=== PATIENT | male | born 1960 | race African-American/Black ===

== ENCOUNTER → 2017-03-23 | Outpatient (CLI) | payer OTHER ==
[~2017-03-23] MED LIST: ALUM-35 PO; ASPI81TA28 PO; ASPI81TA57 PO; ATEN50TA PO; FINA5TAB PO; GLIP5TAB11 PO; GLYB5TAB8 PO; HYDR25TA4 PO; INSHRIE SC; LISI5TAB PO; METF-384 PO; PRS5 PO; TAMS0.4C38 PO
[2017-03-23 13:24] LABS: BASO % 0.1 %; BASO ABS # 0.01 K/uL (0-0.2); EOS % 0.3 %; HEMATOCRIT 50.4 % (42-52); IG% 0.2 %; LYMPH % 29.7 %; LYMPH ABS # 2.63 K/uL (1.2-3.4); MEAN PLATELET VOLUME 11.9 fL (7.4-10.4); MONO % 7.7 %; PLATELET COUNT 203 K/uL (130-400); RED BLOOD COUNT 5.09 M/uL (4.7-6.1); WHITE BLOOD COUNT 8.85 K/uL (4.8-10.8)
[2017-03-23 13:28] LABS: COMPLETE YES; MEAN CORPUSCULAR HGB CONC 33.3 g/dl (32-36)
[2017-03-23 15:10] LABS: URINE APPEARANCE CLEAR (CLEAR); URINE BILIRUBIN NEG (NEG); URINE COLOR YELLOW; URINE EPITHELIAL CELL AUTO 0-5 /lpf (0-5); URINE NITRITE NEG (NEG); URINE PH 6.5 (4.5-7.5); URINE SPECIFIC GRAVITY 1.039 (1.000-1.030); UROBILINOGEN NEG (NEG)
[2017-03-23 15:16] LABS: MANUAL MICROSCOPIC REQUIRED? NO; REVIEW REQ? YES
[2017-03-23 19:18] LABS: ALB/GLOB RATIO 1.1 (0.9-2); ALKALINE PHOSPHATASE 102 U/L (45-117); ALT/SGPT 20 U/L (12-78); AST/SGOT 6 U/L (15-37); BLOOD UREA NITROGEN 14 mg/dl (7-18); BUN/CREATININE RATIO 12.8 (10-20); CALCIUM 9.7 mg/dl (8.5-10.1); CARBON DIOXIDE 30 mmol/L (21-32); CHLORIDE 103 mmol/L (98-107); GLUCOSE 414 mg/dl (70-99); POTASSIUM 4.9 mmol/L (3.5-5.1); SODIUM 137 mmol/L (136-145)
[2017-03-23 19:32] LABS: BETA-HYDROXYBUTYRATE 1.51 mg/dL (0.2-2.81)
== END ==
LOC: C.LABSPEC 12:53
PROVIDERS: ATTEND Nurse Practitioner Adult Health
DX: R33.9 Retention of urine, unspecified (principal)

== ENCOUNTER 2017-04-29 10:30 | Inpatient (IN) | payer OTHER ==
[~2017-04-29] VITALS: Ht 185.4 cm; Wt 84.7 kg
[~2017-04-29 10:30] MED LIST changes: -ASPI81TA28 PO; -FINA5TAB PO; -GLYB5TAB8 PO; -HYDR25TA4 PO; -INSHRIE SC; -METF-384 PO
[2017-04-29] MEDS ORDERED: GLYB5TAB8 PO (11:26)
[2017-04-29] MEDS ORDERED: ASPI81TA28 PO (11:26)
[2017-04-29] MEDS ORDERED: INSHRIE SC (11:26)
[2017-04-29] MEDS ORDERED: METF-384 PO (11:26)
[2017-04-29] MEDS ORDERED: FINA5TAB PO (11:26)
[2017-04-29] MEDS ORDERED: HYDR25TA4 PO (11:26)
[2017-04-29] MEDS ORDERED: SODIUM CHLORIDE 0.9% 1000ML 1,000 ML IV STA ×2 (11:54→12:57)
[2017-04-29] MEDS ORDERED: ONDANSETRON INJ 2 MG/ML 2 ML VIAL IV STA (11:54)
[2017-04-29] MEDS ORDERED: MoRPHine SULFATE 4 MG/ML 1 ML CARP\\VIAL IV STA (11:54)
[2017-04-29] MEDS ORDERED: OPTIRAY 320 IV PRN (12:15)
[2017-04-29 12:29] LABS: URINE APPEARANCE CLEAR (CLEAR); URINE BILIRUBIN NEG (NEG); URINE COLOR YELLOW; URINE NITRITE NEG (NEG); URINE SPECIFIC GRAVITY 1.042 (1.000-1.030); UROBILINOGEN NEG (NEG); ZZUR CULT IF INDIC CLEAN CATCH NO
[2017-04-29 12:31] LABS: COMPLETE YES; HEMATOCRIT 51.3 % (42-52); IG% 0.2 %; LYMPH % 8.2 %; LYMPH ABS # 1.32 K/uL (1.2-3.4); MEAN CELL VOLUME 95.5 fL (80-100); MEAN CORPUSCULAR HEMOGLOBIN 34.1 pg (25-34); MEAN CORPUSCULAR HGB CONC 35.7 g/dl (32-36); MEAN PLATELET VOLUME 11.1 fL (7.4-10.4); MONO % 6.1 %; NEUT % 85.5 %; PLATELET COUNT 190 K/uL (130-400); RED BLOOD COUNT 5.37 M/uL (4.7-6.1); WHITE BLOOD COUNT 16.17 K/uL (4.8-10.8)
[2017-04-29 12:49] LABS: BUN/CREATININE RATIO 14.1 (10-20); CALCIUM 9.9 mg/dl (8.5-10.1); CREATININE 1.4 mg/dl (0.60-1.40); POTASSIUM 4.6 mmol/L (3.5-5.1)
[2017-04-29 12:52] LABS: MANUAL MICROSCOPIC REQUIRED? NO; REVIEW REQ? NO
[2017-04-29 12:59] LABS: BETA-HYDROXYBUTYRATE 11.43 mg/dL (0.2-2.81)
[2017-04-29] MEDS ORDERED: NovoLIN-R INSULIN PER UNIT CHARGE SC STA (13:05)
--- NOTE | 2017-04-29 13:07 | EMERGENCY ROOM VISIT NOTE ---
History Report prepared by Augustine: Safia Calles Under the Supervision of: Dr. Mikal Hayes M.D. First contact with patient: 11:31 Chief Complaint: ABDOMINAL PAIN Stated Complaint: ACUTE ABD. PAIN Nursing Triage Summary: 3 days ago had bm with blood in toilet and on paper. pt reports he is diabetic and needed insulin. after that he could not have bm. pt has been vomiting since last night. has been able to urinate. feels dehydrated. denies any hx of hemorrhoids. pt has been here for [facility] told he has infection History of Present Illness The patient is a 56 year old male with a past medical history of HTN and IDDM who presents to the ED with a cc of constant lower abdominal pain for the past 3 days. His last bowel movement was 3 days ago. He states that he had some hematochezia at that time. He has also not passed gas in the past 3 days. The patient rates his pain as an 8/10 in severity. He has never had pain like this before. Positive nausea, vomiting. Negative fevers, chills, cough, urinary symptoms. Pt is incarcerated. Denies recent travel or sick contacts. Source of History: patient Onset: 3 days ago Position: abdomen (lower) Symptom Intensity: 8/10 Timing: constant Associated Symptoms: + nausea, + vomiting, + hematochezia, No fevers, No chills, No cough, No abdominal pain Note: No BM or passing gas for 3 days. Review of Systems See HPI for pertinent positives and negatives. A total of ten systems were reviewed and were otherwise negative. Past Medical & Surgical Medical Problems: (1) BPH (benign prostatic hypertrophy) (2) Diabetes mellitus, type 2 (3) History of prostatitis (4) Hypertension Family History No pertinent history stated. Social History Smoking Status: Current Every Day Smoker Alcohol Use: none Drug Use: none Marital Status: Housing Status: other Occupation Status: other Current/Historical Medications Scheduled Aspirin (Aspirin Ec), 81 MG PO DAILY Atenolol (Tenormin), 50 MG PO DAILY Finasteride (Proscar), 5 MG PO HS Glyburide (Micronase), 2 TAB PO BID Hydrochlorothiazide (Hctz), 25 MG PO DAILY Insulin Human Regular (Humulin R), SC UD Lisinopril (Prinivil), 5 MG PO DAILY Metformin Hcl (Glucophage), 1,000 MG PO BID Allergies Coded Allergies: No Known Allergies (Unverified , 04/29/17) Physical Exam Vital Signs Date Time Temp Pulse Resp B/P (MAP) Pulse Ox O2 Delivery O2 Flow Rate FiO2 04/29/17 16:28 102 122/77 96 Room Air 04/29/17 15:55 98 Room Air 04/29/17 13:56 100 18 142/88 98 Room Air 04/29/17 12:23 112 04/29/17 12:17 116 20 139/94 97 Room Air 04/29/17 10:39 36.8 129 20 127/90 97 Room Air Physical Exam GENERAL: Awake, alert, well-appearing, NAD, not diaphoretic HENT: Normocephalic, atraumatic. EYES: Normal conjunctiva. Sclera non-icteric. NECK: Supple. No nuchal rigidity. FROM. RESPIRATORY: CTAB, no rhonchi, wheezing, crackles CARDIAC: RRR, no MRG ABDOMEN: Soft, no upper abdominal tenderness. Suprapubic, LLQ, and RLQ tenderness, hypoactive BS, negative obturators, negative psoas. MSK: No chest wall TTP, no LE edema NEURO: GCS 15, CN 2-12 intact, moves all 4s on command SKIN: No rash or jaundice noted. Medical Decision & Procedures ER Provider Diagnostic Interpretation: Radiology results as stated below per my review and radiologist interpretation: CT SCAN OF THE ABDOMEN AND PELVIS WITH IV CONTRAST CLINICAL HISTORY: Lower abdominal pain. Obstipation. COMPARISON STUDY: Abdominal CT dated 10/28/2013. TECHNIQUE: Following the IV administration of 119 cc of Optiray 320, CT scan of the abdomen and pelvis is performed from the lung bases to the proximal femora. Images are reviewed in the axial, sagittal, and coronal planes. IV contrast was administered without complication. A dose lowering technique was utilized adhering to the principles of ALARA. CT DOSE: 345.84 mGy.cm FINDINGS: Lung bases: The heart is normal in size and without pericardial effusion. The lung bases are clear noting dependent atelectasis. Liver: The contrast-enhanced liver is normal in size, contour, and attenuation. There is no intrahepatic biliary ductal dilatation. The hepatic veins and portal veins are patent. Gallbladder: Unremarkable. Spleen: Normal in size and attenuation. Pancreas: Unremarkable. Adrenal glands: Unremarkable. Kidneys: The contrast enhanced kidneys are normal in size and without hydronephrosis. The kidneys enhance symmetrically. Abdominal vasculature: The abdominal aorta is normal in course and caliber noting moderate atherosclerotic calcification. There is a moderate stenosis within the right common iliac artery seen on image #331. Bowel: There is a long segment of ileum in the right lower quadrant which is thick-walled and hyperemic with mucosal edema. There is surrounding interloop fluid. The upstream small bowel is distended and fluid-filled measuring up to 3.7 cm in diameter. This gradually transitions to decompressed distal small bowel and colon. No pneumatosis intestinalis or portal venous gas is seen. The appendix is well-visualized and normal. Peritoneum: There is no intraperitoneal free air. There is trace perihepatic and pelvic free fluid. There is a small fat-containing umbilical hernia. Lymphadenopathy: Numerous mildly enlarged mesenteric lymph nodes are likely on a reactive basis. These measure up to 2.0 cm in short axis. There is no retroperitoneal, pelvic sidewall, or inguinal lymphadenopathy. Pelvic viscera: The the prostate gland is enlarged and heterogeneous measuring 5.5 cm in transverse diameter. The bladder is distended and grossly unremarkable. Skeletal structures: There is a large posterior disc osteophyte complex at L5-S1. This likely contributes to acquired compromise of the central canal. Advanced degenerative endplate sclerosis is seen at L5-S1. No lytic or blastic lesions are seen. IMPRESSION: 1. There is a long segment of the distal ileum which is thick-walled, edematous, and hyperemic. The appearance is consistent with a nonspecific ileitis, likely on an infectious/inflammatory basis. 2. The upstream small bowel is distended and fluid-filled. This could represent partial obstruction secondary to ileal edema or possibly a reactive ileus. 3. There is a small volume of free fluid in the abdomen pelvis. No pneumatosis intestinalis, portal venous gas, or intraperitoneal free air is seen. 4. Prostatomegaly. 5. Numerous enlarged mesenteric lymph nodes are likely on a reactive basis. 6. Additional findings as above. Electronically signed by: Isreal Blackmon M.D. 04/29/2017 3:16 PM Dictated Date/Time: 04/29/2017 3:03 PM Laboratory Results Test 04/29/17 12:00 04/29/17 12:10 04/29/17 16:33 Urine Color YELLOW Urine Appearance CLEAR (CLEAR) Urine pH 5.0 (4.5-7.5) Urine Specific Garretson 1.042 (1.000-1.030) Urine Protein NEG (NEG) Urine Glucose (UA) 3+ (NEG) Urine Ketones 3+ (NEG) Urine Occult Blood NEG (NEG) Urine Nitrite NEG (NEG) Urine Bilirubin NEG (NEG) Urine Urobilinogen NEG (NEG) Urine Leukocyte Esterase NEG (NEG) Immature Granulocyte % (Auto) 0.2 % White Blood Count 16.17 K/uL (4.8-10.8) Red Blood Count 5.37 M/uL (4.7-6.1) Hemoglobin 18.3 g/dL (14.0-18.0) Hematocrit 51.3 % (42-52) Mean Corpuscular Volume 95.5 fL (80-100) Mean Corpuscular Hemoglobin 34.1 pg (25-34) Mean Corpuscular Hemoglobin Concent 35.7 g/dl (32-36) Platelet Count 190 K/uL (130-400) Mean Platelet Volume 11.1 fL (7.4-10.4) Neutrophils (%) (Auto) 85.5 % Lymphocytes (%) (Auto) 8.2 % Monocytes (%) (Auto) 6.1 % Eosinophils (%) (Auto) 0.0 % Basophils (%) (Auto) 0.0 % Neutrophils # (Auto) 13.83 K/uL (1.4-6.5) Lymphocytes # (Auto) 1.32 K/uL (1.2-3.4) Monocytes # (Auto) 0.98 K/uL (0.11-0.59) Eosinophils # (Auto) 0.00 K/uL (0-0.5) Basophils # (Auto) 0.00 K/uL (0-0.2) Immature Granulocyte # (Auto) 0.04 K/uL (0.00-0.02) Total Bilirubin 1.1 mg/dl (0.2-1) Direct Bilirubin 0.2 mg/dl (0-0.2) Aspartate Amino Transf (AST/SGOT) 11 U/L (15-37) Alanine Aminotransferase (ALT/SGPT) 19 U/L (12-78) Alkaline Phosphatase 79 U/L (45-117) Total Protein 7.5 gm/dl (6.4-8.2) Albumin 4.0 gm/dl (3.4-5.0) Lipase 185 U/L (73-393) Beta-Hydroxybutyric Acid 11.43 mg/dL (0.2-2.81) Bedside Lactic Acid Venous 1.41 mmol/L (0.90-1.70) Laboratory results reviewed by me Medications Administered Medications (Trade) Dose Ordered Sig/Zion Route Start Time Stop Time Status Last Admin Dose Admin Sodium Chloride 1,000 ml @ 999 mls/hr Q1H1M STAT IV 04/29/17 11:54 04/29/17 12:54 DC 04/29/17 12:23 999 MLS/HR Morphine Sulfate (MoRPHine SULFATE INJ) 4 mg NOW STAT IV 04/29/17 11:54 04/29/17 11:57 DC 04/29/17 12:23 4 MG Ondansetron HCl (Zofran Inj) 4 mg NOW STAT IV 04/29/17 11:54 04/29/17 11:57 DC 04/29/17 12:23 4 MG Sodium Chloride 1,000 ml @ 999 mls/hr Q1H1M STAT IV 04/29/17 12:57 04/29/17 13:57 DC 04/29/17 13:01 999 MLS/HR Insulin Human Regular (novoLIN-R U-100 PER UNIT) 5 units NOW STAT SC 04/29/17 13:05 04/29/17 13:06 DC 04/29/17 13:05 5 UNITS Ciprofloxacin/ Dextrose (Cipro / D5W) 400 mg NOW STAT IV 04/29/17 15:24 04/29/17 15:26 DC 04/29/17 16:26 400 MG Metronidazole (Flagyl / Nss) 500 mg NOW STAT IV 04/29/17 15:24 04/29/17 15:26 DC 04/29/17 16:27 500 MG ECG Indication: abdominal pain Rate (beats per minute): 115 Rhythm: sinus tachycardia Findings: no acute ischemic change, no ectopy ED Course 1131: The patient was evaluated in room B12B. A complete history and physical exam was performed. 1154: Zofran 4 mg IV, Morphine sulfate 4 mg IV, NSS 1000 ml @ 999 mls/hr IV 1257: NSS 1000 ml @ 999 mls/hr IV 1305: Insulin Human Regular 5 units SC 1524: Flagyl 500 mg IV, Cipro 400 mg IV 1527: I reassessed the patient at this time. He is feeling better and resting comfortably. I discussed the results and treatment plan with the patient. I answered all pertaining questions that he had. He expressed understanding and verbalized agreement. 1530: I spoke with Dr. Holden. We discussed the patients case. The patient will be evaluated by the [facility] for further management. 1536: I discussed the case with Dr. Miranda of general surgery. He will come to the ED to evaluate the patient for further management. Medical Decision The patient is a 56 year old male with a past medical history of HTN and IDDM who presents to the ED with a cc of constant lower abdominal pain for the past 3 days. Differential diagnosis: Etiologies such as appendicitis, diverticulitis, PUD, biliary pathology, UTI, pancreatitis, obstruction, mesenteric ischemia, aortic pathology, infections, inflammatory bowel disease, renal colic, as well as others were entertained. Patient was seen and evaluated the bedside. Patient is a history of hypertension and insulin-dependent diabetes who presents with lower abdominal pain, obstipation, and constipation. Patient did have mildly elevated white count. Patient was able tolerate his by mouth contrast. Patient was also noted to have normal LFTs and lipase. Patient's EKG did show sinus tachycardia. Patient UA clean. Patient did have CT of the abdomen pelvis completed which showed possible partial small bowel obstruction versus ileus secondary to edematous small bowel wall. Given patient's infectious symptoms patient was given Cipro Flagyl. She was admitted to the medicine service. Surgery was consulted and they will follow. Medication Reconcilliation Current Medication List: was personally reviewed by me Blood Pressure Screening Patient's blood pressure: Elevated blood pressure Blood pressure disposition: Elevated BP felt to be situational Consults Time Called: 1528 Consulting Physician: Dr. Holden Returned Call: [address] Holden. We discussed the patients case. The patient will be evaluated by the [facility] for further management. Additional Consults: Time Called: 1534 Consulted Physician: Dr. Miranda Returned Call: 1536 Additional Comments: I discussed the case with Dr. Miranda of general surgery. He will come to the ED to evaluate the patient for further management. Impression Primary Impression: Partial small bowel obstruction Scribe Attestation The scribe's documentation has been prepared under my direction and personally reviewed by me in its entirety. I confirm that the note above accurately reflects all work, treatment, procedures, and medical decision making performed by me. Departure Information Dispostion Being Evaluated By Hospitalist Referrals Vasiliy GUAMAN (PCP) Patient Instructions My [facility]
--- NOTE | 2017-04-29 15:17 | DIAGNOSTIC IMAGING REPORT ---
CT SCAN OF THE ABDOMEN AND PELVIS WITH IV CONTRAST CLINICAL HISTORY: Lower abdominal pain. Obstipation. COMPARISON STUDY: Abdominal CT dated 10/28/2013. TECHNIQUE: Following the IV administration of 119 cc of Optiray 320, CT scan of the abdomen and pelvis is performed from the lung bases to the proximal femora. Images are reviewed in the axial, sagittal, and coronal planes. IV contrast was administered without complication. A dose lowering technique was utilized adhering to the principles of ALARA. CT DOSE: 345.84 mGy.cm FINDINGS: Lung bases: The heart is normal in size and without pericardial effusion. The lung bases are clear noting dependent atelectasis. Liver: The contrast-enhanced liver is normal in size, contour, and attenuation. There is no intrahepatic biliary ductal dilatation. The hepatic veins and portal veins are patent. Gallbladder: Unremarkable. Spleen: Normal in size and attenuation. Pancreas: Unremarkable. Adrenal glands: Unremarkable. Kidneys: The contrast enhanced kidneys are normal in size and without hydronephrosis. The kidneys enhance symmetrically. Abdominal vasculature: The abdominal aorta is normal in course and caliber noting moderate atherosclerotic calcification. There is a moderate stenosis within the right common iliac artery seen on image #331. Bowel: There is a long segment of ileum in the right lower quadrant which is thick-walled and hyperemic with mucosal edema. There is surrounding interloop fluid. The upstream small bowel is distended and fluid-filled measuring up to 3.7 cm in diameter. This gradually transitions to decompressed distal small bowel and colon. No pneumatosis intestinalis or portal venous gas is seen. The appendix is well-visualized and normal. Peritoneum: There is no intraperitoneal free air. There is trace perihepatic and pelvic free fluid. There is a small fat-containing umbilical hernia. Lymphadenopathy: Numerous mildly enlarged mesenteric lymph nodes are likely on a reactive basis. These measure up to 2.0 cm in short axis. There is no retroperitoneal, pelvic sidewall, or inguinal lymphadenopathy. Pelvic viscera: The the prostate gland is enlarged and heterogeneous measuring 5.5 cm in transverse diameter. The bladder is distended and grossly unremarkable. Skeletal structures: There is a large posterior disc osteophyte complex at L5-S1. This likely contributes to acquired compromise of the central canal. Advanced degenerative endplate sclerosis is seen at L5-S1. No lytic or blastic lesions are seen. IMPRESSION: 1. There is a long segment of the distal ileum which is thick-walled, edematous, and hyperemic. The appearance is consistent with a nonspecific ileitis, likely on an infectious/inflammatory basis. 2. The upstream small bowel is distended and fluid-filled. This could represent partial obstruction secondary to ileal edema or possibly a reactive ileus. 3. There is a small volume of free fluid in the abdomen pelvis. No pneumatosis intestinalis, portal venous gas, or intraperitoneal free air is seen. 4. Prostatomegaly. 5. Numerous enlarged mesenteric lymph nodes are likely on a reactive basis. 6. Additional findings as above. Electronically signed by: Isreal Blackmon M.D. 04/29/2017 3:16 PM Dictated Date/Time: 04/29/2017 3:03 PM
[2017-04-29] MEDS ORDERED: METRONIDAZOLE 500MG / 100ML NSS IV STA (15:24)
[2017-04-29] MEDS ORDERED: CIPROFLOXACIN 400MG / 200ML D5W IV STA (15:24)
[2017-04-29 15:55] VITALS: O2SAT 98; BMI 24.6
[2017-04-29] MEDS ORDERED: INFLUENZA VIRUS QUAD VACCINE 0.5 ML SYR IM. ONE (16:45)
[2017-04-29] MEDS ORDERED: INFLUENZA ADMINISTRATION CHARGE ONE (16:45)
[2017-04-29] MEDS ORDERED: PNEUMOCOCCAL ADMINISTRATION CHARGE ONE (16:45)
[2017-04-29] MEDS ORDERED: PNEUMOCOCCAL POLYSACCHARIDES 25 MCG/0.5 ML VIAL/SYR IM. ONE (16:45)
[2017-04-29] MEDS ORDERED: ONDANSETRON INJ 2 MG/ML 2 ML VIAL IV PRN (17:15)
[2017-04-29] MEDS ORDERED: INSULIN IV INFUSION PROTOCOL STA (17:17)
--- NOTE | 2017-04-29 17:21 | History and Physical ---
History & Physical Date & Time of Service: Apr 29, 2017 at 16:50 . Chief Complaint: abdominal pain . Primary Care Physician: Vasiliy GUAMAN . History of Present Illness Source: patient, hospital records 56 YO male incarcerated at [facility]. History of hypertension, diabetes type 2, and other problems noted below. Developed abdominal pain 3 days ago. Patient describes lower abdominal pain that is constant, severe, nonradiating. Abdominal pain associated with nausea and vomiting. No bowel movement for a few day. He has noted intermittent rectal bleeding. Also experiencing fever, chills, sweats. Patient reports that he has lost about 30 lbs. Came to ED for evaluation. Symptoms improved after receiving IV morphine and ondansetron. . Past Medical/Surgical History Chronic Medical Problems: (1) BPH (benign prostatic hypertrophy) (2) Diabetes mellitus, type 2 (3) History of prostatitis (4) Hypertension . Family History FATHER Diabetes mellitus Social History Smoking Status: Current Every Day Smoker Alcohol Use: none Drug Use: none Marital Status: Housing status: other ([facility]) Allergies Coded Allergies: No Known Allergies (Unverified , 04/29/17) Home Medications Scheduled Aspirin (Aspirin Ec), 81 MG PO DAILY Atenolol (Tenormin), 50 MG PO DAILY Finasteride (Proscar), 5 MG PO HS Glyburide (Micronase), 2 TAB PO BID Hydrochlorothiazide (Hctz), 25 MG PO DAILY Insulin Human Regular (Humulin R), SC UD Lisinopril (Prinivil), 5 MG PO DAILY Metformin Hcl (Glucophage), 1,000 MG PO BID Review of Systems Constitutional: + problem reported (as noted above in HPI) Eyes: + problem reported (occasional blurred vision) ENT: No nasal symptoms, No sore throat Respiratory: + cough (occasional), + shortness of breath (occasional) Cardiovascular: + palpitations (occasional), No chest pain Abdomen: + problem reported (as per HPI) Genitourinary - Male: No hematuria, No dysuria, No urinary frequency, No urinary urgency Neurologic: + problem reported (mild headache) Endocrine: No excessive thirst, No excessive urination Hematologic / Lymphatic: No abnormal bleeding/bruising Integumentary: No rash, No new/changing skin lesions Physical Exam Vital Signs Date Time Temp Pulse Resp B/P (MAP) Pulse Ox O2 Delivery O2 Flow Rate FiO2 04/29/17 16:28 102 122/77 96 Room Air 04/29/17 15:55 98 Room Air 04/29/17 13:56 100 18 142/88 98 Room Air 04/29/17 12:23 112 04/29/17 12:17 116 20 139/94 97 Room Air 04/29/17 10:39 36.8 129 20 127/90 97 Room Air General Appearance: WD/WN, no apparent distress Head: normocephalic, atraumatic Eyes: normal inspection, PERRL, EOMI, sclerae normal (eyelids and conjunctivae normal) ENT: normal ENT inspection, hearing grossly normal, pharynx normal Neck: supple, no adenopathy, thyroid normal, trachea midline Respiratory/Chest: no respiratory distress, no accessory muscle use, + rhonchi (few scattered rhonchi) Cardiovascular: regular rate, rhythm, no edema, no gallop, no JVD, no murmur Abdomen/GI: + pertinent finding (quiet bowel sounds, slightly distended, soft, moderate lower abdominal tenderness without rebound or guarding, no palpable masses or organomegaly) Extremities/Musculoskelatal: no calf tenderness, no pedal edema Neurologic/Psych: turn operator II-XII nml as tested (PERRL, EOMI, no facial palsy, no dysarthria), no motor/sensory deficits (motor stength grossly intact), alert, normal mood/affect, oriented x 3 Skin: normal color, warm/dry, no rash Lymphatic: no adenopathy (cervical) Diagnostics Laboratory Results Results Past 24 Hours Test 04/29/17 12:00 04/29/17 12:10 04/29/17 16:33 Range/Units Urine Color YELLOW Urine Appearance CLEAR CLEAR Urine pH 5.0 4.5-7.5 Urine Specific [place] 1.042 1.000-1.030 Urine Protein NEG NEG Urine Glucose (UA) 3+ NEG Urine Ketones 3+ NEG Urine Occult Blood NEG NEG Urine Nitrite NEG NEG Urine Bilirubin NEG NEG Urine Urobilinogen NEG NEG Urine Leukocyte Esterase NEG NEG White Blood Count 16.17 4.8-10.8 K/uL Red Blood Count 5.37 4.7-6.1 M/uL Hemoglobin 18.3 14.0-18.0 g/dL Hematocrit 51.3 42-52 % Mean Corpuscular Volume 95.5 80-100 fL Mean Corpuscular Hemoglobin 34.1 25-34 pg Mean Corpuscular Hemoglobin Concent 35.7 32-36 g/dl Platelet Count 190 130-400 K/uL Mean Platelet Volume 11.1 7.4-10.4 fL Neutrophils (%) (Auto) 85.5 % Lymphocytes (%) (Auto) 8.2 % Monocytes (%) (Auto) 6.1 % Eosinophils (%) (Auto) 0.0 % Basophils (%) (Auto) 0.0 % Neutrophils # (Auto) 13.83 1.4-6.5 K/uL Lymphocytes # (Auto) 1.32 1.2-3.4 K/uL Monocytes # (Auto) 0.98 0.11-0.59 K/uL Eosinophils # (Auto) 0.00 0-0.5 K/uL Basophils # (Auto) 0.00 0-0.2 K/uL RDW Standard Deviation 44.2 36.4-46.3 fL RDW Coefficient of Variation 12.8 11.5-14.5 % Immature Granulocyte % (Auto) 0.2 % Immature Granulocyte # (Auto) 0.04 0.00-0.02 K/uL Sodium Level 136 136-145 mmol/L Potassium Level 4.6 3.5-5.1 mmol/L Chloride Level 100 98-107 mmol/L Carbon Dioxide Level 26 21-32 mmol/L Anion Gap 10.0 3-11 mmol/L Blood Urea Nitrogen 20 7-18 mg/dl Creatinine 1.40 0.60-1.40 mg/dl Est Creatinine Clear Calc Drug Dose 65.0 ml/min Estimated GFR () 63.7 Estimated GFR (Non- 55.0 BUN/Creatinine Ratio 14.1 10-20 Random Glucose 346 70-99 mg/dl Calcium Level 9.9 8.5-10.1 mg/dl Total Bilirubin 1.1 0.2-1 mg/dl Direct Bilirubin 0.2 0-0.2 mg/dl Aspartate Amino Transf (AST/SGOT) 11 15-37 U/L Alanine Aminotransferase (ALT/SGPT) 19 12-78 U/L Alkaline Phosphatase 79 45-117 U/L Total Protein 7.5 6.4-8.2 gm/dl Albumin 4.0 3.4-5.0 gm/dl Lipase 185 73-393 U/L Beta-Hydroxybutyric Acid 11.43 0.2-2.81 mg/dL Bedside Lactic Acid Venous 1.41 0.90-1.70 mmol/L Diagnostic Radiology CT SCAN OF THE ABDOMEN AND PELVIS WITH IV CONTRAST FINDINGS: Lung bases: The heart is normal in size and without pericardial effusion. The lung bases are clear noting dependent atelectasis. Liver: The contrast-enhanced liver is normal in size, contour, and attenuation. There is no intrahepatic biliary ductal dilatation. The hepatic veins and portal veins are patent. Gallbladder: Unremarkable. Spleen: Normal in size and attenuation. Pancreas: Unremarkable. Adrenal glands: Unremarkable. Kidneys: The contrast enhanced kidneys are normal in size and without hydronephrosis. The kidneys enhance symmetrically. Abdominal vasculature: The abdominal aorta is normal in course and caliber noting moderate atherosclerotic calcification. There is a moderate stenosis within the right common iliac artery seen on image #[id number]. Bowel: There is a long segment of ileum in the right lower quadrant which is thick-walled and hyperemic with mucosal edema. There is surrounding interloop fluid. The upstream small bowel is distended and fluid-filled measuring up to 3.7 cm in diameter. This gradually transitions to decompressed distal small bowel and colon. No pneumatosis intestinalis or portal venous gas is seen. The appendix is well-visualized and normal. Peritoneum: There is no intraperitoneal free air. There is trace perihepatic and pelvic free fluid. There is a small fat-containing umbilical hernia. Lymphadenopathy: Numerous mildly enlarged mesenteric lymph nodes are likely on a reactive basis. These measure up to 2.0 cm in short axis. There is no retroperitoneal, pelvic sidewall, or inguinal lymphadenopathy. Pelvic viscera: The the prostate gland is enlarged and heterogeneous measuring 5.5 cm in transverse diameter. The bladder is distended and grossly unremarkable. Skeletal structures: There is a large posterior disc osteophyte complex at L5-S1. This likely contributes to acquired compromise of the central canal. Advanced degenerative endplate sclerosis is seen at L5-S1. No lytic or blastic lesions are seen. IMPRESSION: 1. There is a long segment of the distal ileum which is thick-walled, edematous, and hyperemic. The appearance is consistent with a nonspecific ileitis, likely on an infectious/inflammatory basis. 2. The upstream small bowel is distended and fluid-filled. This could represent partial obstruction secondary to ileal edema or possibly a reactive ileus. 3. There is a small volume of free fluid in the abdomen pelvis. No pneumatosis intestinalis, portal venous gas, or intraperitoneal free air is seen. 4. Prostatomegaly. 5. Numerous enlarged mesenteric lymph nodes are likely on a reactive basis. 6. Additional findings as above. Electronically signed by: Isreal Blackmon M.D. 04/29/2017 3:16 PM Dictated Date/Time: 04/29/2017 3:03 PM . EKG EKG performed at 12:[address] at 115 / minute, no acute ST or T-wave abnormalities. . Impression Assessment and Plan ABDOMINAL PAIN CT findings as noted above suggest enteritis and small bowel obstruction. Patient reports intermittent rectal bleeding for some time and weight loss. Consider infectious enteritis, ischemic bowel, inflammatory bowel disease, malignancy. NPO except ice chips, sips, meds. IV antibiotic therapy with ciprofloxacin and metronidazole. General Surgery consulted - ED provider discussed case with them. Consult GI. COUGH Patient reports chronic cough and weight loss. He is a smoker. Check chest x-ray. HYPERTENSION BP in ED 127/90. Hold HCTZ due to GI symptoms. Continue atenolol and lisinopril with sips of water. Follow and titrate Rx. DM TYPE 2 Managed with metformin, glyburide, metformin. Random blood sugar in ED 346. Received 5 units of regular insulin; repeat blood sugar in ED was in 200s. Elevated BHB and ketonuria noted, but anion gap only 10. No need for insulin infusion at this time. Check Hgb A1C. Hold oral agents during hospital stay. Lantus / NovoLog per protocol. BPH Resume finasteride once GI symptoms improve. VTE PROPHYLAXIS Moderate risk for VTE. No anticoagulants because of GI bleeding and possible need for surgical intervention. SCD's. Ambulate as able. DISPOSITION Admit to Med-Surg Unit. Expected return to [facility] under the care of their medical team their. . Advanced Directives Existing Living Will: No Existing Power of Telephone Clerk Telegraph Office: No VTE Prophylaxis VTE Risk Assessment Done? Y/N: Yes Risk Level: Moderate Given or contraindicated: SCD's
[2017-04-29] MEDS ORDERED: MODERATE STRESS LEVEL ONE (17:30)
[2017-04-29] MEDS ORDERED: INSULIN PROTOCOL GOAL RANGE ONE (17:30)
[2017-04-29] MEDS ORDERED: MoRPHine SULFATE 4 MG/ML 1 ML CARP\\VIAL IV PRN (17:45)
[2017-04-29 18:00] VITALS: BP 121/81; PULSE 91; TEMP 37; O2SAT 96
[2017-04-29] MEDS ORDERED: GLUCOSE 40% GEL 15 GM TUBE PO PRN (18:30)
[2017-04-29] MEDS ORDERED: DEXTROSE 50% 50 ML SYR IV PRN (18:30)
[2017-04-29] MEDS ORDERED: GLUCOSE 10 TABS/TUBE PO PRN (18:30)
[2017-04-29] MEDS ORDERED: GLUCAGON FOR INJ 1 MG VIAL SQ PRN (18:30)
[2017-04-29] MEDS: D5W AND LACTATED RINGERS 1,000 ML IV SCH (18:53)
[2017-04-29] MEDS ORDERED: INSULIN ASPART 100 UNITS/ML 3 ML PEN SC SCH (19:00)
[2017-04-29] MEDS: INSULIN ASPART 100 UNITS/ML 3 ML PEN SC SCH (19:36)
[2017-04-29 20:32] VITALS: O2SAT 96
[2017-04-29] MEDS ORDERED: INSULIN GLARGINE SOLOSTAR 100 UNITS/ML 3 ML PEN SC SCH (21:00)
[2017-04-29] MEDS: AMPICILLIN/SULBACTAM SOD INJ 3,000 MG in SODIUM CHLORIDE 0.9% 100ML 100 ML IV SCH (22:12)
--- NOTE | 2017-04-29 22:16 | DIAGNOSTIC IMAGING REPORT ---
SINGLE VIEW CHEST CLINICAL HISTORY: Cough. FINDINGS: An AP, portable, upright chest radiograph is obtained. No prior studies are available for comparison at the time of dictation. The examination is degraded by portable technique and patient rotation. The cardiomediastinal silhouette is unremarkable. There is mild elevation right hemidiaphragm and bibasilar atelectasis. No airspace consolidation is seen typical for pneumonia and there is no large pleural effusion. No pneumothorax is seen. The skeletal structures are osteopenic. The bony thorax is grossly intact. IMPRESSION: No acute cardiopulmonary abnormality. Electronically signed by: Isreal Blackmon M.D. 04/29/2017 10:15 PM Dictated Date/Time: 04/29/2017 10:14 PM
--- NOTE | 2017-04-29 22:53 | SURGICAL CONSULTATION ---
DATE OF ADMISSION: 04/29/2017 REASON FOR CONSULT: Abdominal pain. HISTORY OF PRESENT ILLNESS: The patient is a 56-year-old male who has been complaining of lower abdominal pain over the past 3-4 days with apparently some prior rectal bleeding and also some nausea and vomiting noted in the Emergency Room with a white blood cell count of 16,000 that dehydrated with an H&H of 18 [address] scan showing very mildly dilated small bowel with some mildly thickened ileum consistent with ileitis, nonspecific. The patient has a history of hypertension, diabetes. He is an inmate at [facility]. SOCIAL HISTORY: Not contributory. He is an everyday smoker. MEDICATIONS: He takes medications including Tenormin, Humulin insulin, Prinivil, Glucophage, Proscar. ALLERGIES: No known drug allergies. REVIEW OF SYSTEMS: Please see HPI for positive review of systems Ten other systems were reviewed and were otherwise negative. PHYSICAL EXAMINATION: GENERAL: The patient is awake and alert. He is in no distress. He is responsive. He was joking that he would like some ice cream. HEAD: Atraumatic. EYES: Showed normal. NECK: Supple. LUNGS: There is no respiratory distress. HEART: Regular rate and rhythm. ABDOMEN: Soft. He does not have any peritoneal or percussive tenderness. He has relatively normal sounding bowel sounds at the present time. He has some very nonspecific tenderness to deep palpation in the lower abdomen. SKIN: No rashes. Warm and dry. I did review his CAT scan, he has very mildly dilated small bowel to approximately 3.7 cm. ASSESSMENT AND PLAN: A 56-year-old male with very nonspecific lower abdominal pain. He does not have any acute surgical problem at the present time. He is currently on IV antibiotics which I would continue, bowel rest for now, but possibly advancing his diet tomorrow. Tomorrow, I would also have [facility] GI team see the patient as he will at some point need a colonoscopy. He does not appear to have any significant bowel obstruction.
[2017-04-29 22:57] VITALS: BP 101/62; PULSE 80; TEMP 36.5; O2SAT 97
[2017-04-30] MEDS: D5W AND LACTATED RINGERS 1,000 ML IV SCH ×4 (00:03→19:59)
[2017-04-30] MEDS: INSULIN ASPART 100 UNITS/ML 3 ML PEN SC SCH ×6 (00:13→21:02)
[2017-04-30] MEDS: AMPICILLIN/SULBACTAM SOD INJ 3,000 MG in SODIUM CHLORIDE 0.9% 100ML 100 ML IV SCH ×4 (04:17→21:53)
[2017-04-30] MEDS: INSULIN GLARGINE SOLOSTAR 100 UNITS/ML 3 ML PEN SC SCH ×2 (06:07→18:39)
--- NOTE | 2017-04-30 06:47 | Surgery Progress Note ---
Surgery Progress Note Date of Service Apr 30, 2017. Subjective slept well overnight- no pain meds- hungry vitals stable Objective Vital Signs: Date Time Temp Pulse Resp B/P (MAP) Pulse Ox O2 Delivery O2 Flow Rate FiO2 04/29/17 23:45 Room Air 04/29/17 22:57 36.5 80 16 101/62 (75) 97 Room Air 04/29/17 20:32 96 Room Air 04/29/17 18:00 37.0 91 18 121/81 (94) 96 Room Air 04/29/17 17:50 90 20 134/80 98 04/29/17 16:28 102 122/77 96 Room Air 04/29/17 15:55 98 Room Air 04/29/17 13:56 100 18 142/88 98 Room Air 04/29/17 12:23 112 04/29/17 12:17 116 20 139/94 97 Room Air 04/29/17 10:39 36.8 129 20 127/90 97 Room Air General Appearance: no apparent distress Respiratory/Chest: no respiratory distress Abdomen: soft (some bowel sounds) Laboratory Results: Results Past 24 Hours Test 04/29/17 12:00 04/29/17 12:10 04/29/17 16:33 04/29/17 17:35 Range/Units Urine Color YELLOW Urine Appearance CLEAR CLEAR Urine pH 5.0 4.5-7.5 Urine Specific [place] 1.042 1.000-1.030 Urine Protein NEG NEG Urine Glucose (UA) 3+ NEG Urine Ketones 3+ NEG Urine Occult Blood NEG NEG Urine Nitrite NEG NEG Urine Bilirubin NEG NEG Urine Urobilinogen NEG NEG Urine Leukocyte Esterase NEG NEG White Blood Count 16.17 4.8-10.8 K/uL Red Blood Count 5.37 4.7-6.1 M/uL Hemoglobin 18.3 14.0-18.0 g/dL Hematocrit 51.3 42-52 % Mean Corpuscular Volume 95.5 80-100 fL Mean Corpuscular Hemoglobin 34.1 25-34 pg Mean Corpuscular Hemoglobin Concent 35.7 32-36 g/dl Platelet Count 190 130-400 K/uL Mean Platelet Volume 11.1 7.4-10.4 fL Neutrophils (%) (Auto) 85.5 % Lymphocytes (%) (Auto) 8.2 % Monocytes (%) (Auto) 6.1 % Eosinophils (%) (Auto) 0.0 % Basophils (%) (Auto) 0.0 % Neutrophils # (Auto) 13.83 1.4-6.5 K/uL Lymphocytes # (Auto) 1.32 1.2-3.4 K/uL Monocytes # (Auto) 0.98 0.11-0.59 K/uL Eosinophils # (Auto) 0.00 0-0.5 K/uL Basophils # (Auto) 0.00 0-0.2 K/uL RDW Standard Deviation 44.2 36.4-46.3 fL RDW Coefficient of Variation 12.8 11.5-14.5 % Immature Granulocyte % (Auto) 0.2 % Immature Granulocyte # (Auto) 0.04 0.00-0.02 K/uL Sodium Level 136 136-145 mmol/L Potassium Level 4.6 3.5-5.1 mmol/L Chloride Level 100 98-107 mmol/L Carbon Dioxide Level 26 21-32 mmol/L Anion Gap 10.0 3-11 mmol/L Blood Urea Nitrogen 20 7-18 mg/dl Creatinine 1.40 0.60-1.40 mg/dl Est Creatinine Clear Calc Drug Dose 65.0 ml/min Estimated GFR () 63.7 Estimated GFR (Non- 55.0 BUN/Creatinine Ratio 14.1 10-20 Random Glucose 346 70-99 mg/dl Calcium Level 9.9 8.5-10.1 mg/dl Total Bilirubin 1.1 0.2-1 mg/dl Direct Bilirubin 0.2 0-0.2 mg/dl Aspartate Amino Transf (AST/SGOT) 11 15-37 U/L Alanine Aminotransferase (ALT/SGPT) 19 12-78 U/L Alkaline Phosphatase 79 45-117 U/L Total Protein 7.5 6.4-8.2 gm/dl Albumin 4.0 3.4-5.0 gm/dl Lipase 185 73-393 U/L Beta-Hydroxybutyric Acid 11.43 0.2-2.81 mg/dL Bedside Lactic Acid Venous 1.41 0.90-1.70 mmol/L Bedside Glucose 224 70-99 mg/dl Test 04/29/17 18:27 04/29/17 21:51 04/30/17 00:02 04/30/17 05:58 Range/Units Bedside Glucose 199 237 192 217 70-99 mg/dl Test 04/30/17 06:36 Range/Units Assessment & Plan 04/30 17- no acute changes or significant pain- labs pending will try clear liquids. does not seem to need surgical intervention at this point, cont atbx
[2017-04-30] MEDS ORDERED: NURSING VERBAL MED ORDER ONE ×2 (07:15→20:45)
[2017-04-30 07:35] LABS: BUN/CREATININE RATIO 15.3 (10-20); CALCIUM 8.3 mg/dl (8.5-10.1); CREATININE 0.98 mg/dl (0.60-1.40); POTASSIUM 3.7 mmol/L (3.5-5.1)
[2017-04-30 07:37] LABS: MEAN CORPUSCULAR HEMOGLOBIN 33.5 pg (25-34); MEAN CORPUSCULAR HGB CONC 34.9 g/dl (32-36); MEAN PLATELET VOLUME 10.8 fL (7.4-10.4); PLATELET COUNT 140 K/uL (130-400); RED BLOOD COUNT 4.27 M/uL (4.7-6.1); WHITE BLOOD COUNT 7.02 K/uL (4.8-10.8)
[2017-04-30 07:56] VITALS: BP 121/77; PULSE 78; TEMP 36.7; O2SAT 98
[2017-04-30] MEDS: LISINOPRIL 5 MG TAB PO SCH (09:32)
--- NOTE | 2017-04-30 11:18 | Gastrointestinal Consultation ---
Gastrointestinal Consultation Date of Consultation: Apr 30, 2017 Attending Physician: Dr. Pina Consulting Physician: Dr. Silva Reason for Consultation: abd pain, nausea, vomiting x 2 days History of Present Illness Patient is a 56 year old male with HTN and DM who presented to the ER with complaints of acute onset of lower abd pain, nausea and vomiting. He tells me that he ate Monday and later that evening he got lower abd pain and had to strain to have a BM. Noted some blood in his stool. He has had problems in the past with constipation and intermittent rectal bleeding. Denies any issues with diarrhea. Not on pain medications. Not on a regular bowel regimen. The nausea and vomiting started on and lasted all day and night Monday. No vomiting since yesterday afternoon. His pain is much better. Hungry. Tolerated liquids this AM and asking for a real lunch. There was a 30lb weight loss reported in his admission notes though he tells mt that that is intentional and he did it because of his diabetes. No prior history of GI problems other than the constipation. He has never had a colonoscopy. He had a CT on arrival done with IV contrast. It showed a long segment of ileal inflammation. and mild ?PSBO. He has not had a BM since Monday. No family history of IBD. No personal history of TB. Past Medical/Surgical History Medical Problems: (1) Partial small bowel obstruction Status: Acute Past Medical History: as noted in HPI Past Surgical History: reviewed. Non-contributory Family History Diabetes mellitus FATHER no family history of IBD Social History Smoking Status: Current Every Day Smoker Alcohol Use: none Drug Use: none Marital Status: Housing Status: other Allergies Coded Allergies: No Known Allergies (Unverified , 04/29/17) Current Medications Home Meds and Scripts Medications Dose Route/Sig Max Daily Dose Days Date Category Dose Instructions Humulin R (Insulin Human Regular) 100 Units/Ml Susp SC UD 04/29/17 Reported SS- 201-250=2 251-300=4 301-650=6 351-400=8 401-450=10 451-500=12 Glucophage (Metformin Hcl) 1,000 Mg Tab 1,000 Mg PO BID 04/29/17 Reported Hctz (Hydrochlorothiazide) 25 Mg Tab 25 Mg PO DAILY 04/29/17 Reported Micronase (Glyburide) 5 Mg Tab 2 Tab PO BID 04/29/17 Reported Proscar (Finasteride) 5 Mg Tab 5 Mg PO HS 04/29/17 Reported Aspirin Ec (Aspirin) 81 Mg Tab 81 Mg PO DAILY 04/29/17 Reported Prinivil (Lisinopril) 5 Mg Tab 5 Mg PO DAILY 10/28/13 Reported Tenormin (Atenolol) 50 Mg Tab 50 Mg PO DAILY 10/28/13 Reported Review of Systems 12 systems reviewed and negative except as noted Physical Exam Date Time Temp Pulse Resp B/P (MAP) Pulse Ox O2 Delivery O2 Flow Rate FiO2 04/30/17 08:19 Room Air 04/30/17 07:56 36.7 78 18 121/77 (92) 98 Room Air 04/29/17 23:45 Room Air 04/29/17 22:57 36.5 80 16 101/62 (75) 97 Room Air 04/29/17 20:32 96 Room Air 04/29/17 18:00 37.0 91 18 121/81 (94) 96 Room Air 04/29/17 17:50 90 20 134/80 98 04/29/17 16:28 102 122/77 96 Room Air 04/29/17 15:55 98 Room Air 04/29/17 13:56 100 18 142/88 98 Room Air 04/29/17 12:23 112 04/29/17 12:17 116 20 139/94 97 Room Air General Appearance: WD/WN, no apparent distress Eyes: normal inspection, PERRL ENT: normal ENT inspection, hearing grossly normal, pharynx normal Neck: supple, no adenopathy, no JVD Respiratory/Chest: chest non-tender, lungs clear, normal breath sounds, no accessory muscle use Cardiovascular: regular rate, rhythm, no edema, no murmur Abdomen: normal bowel sounds, non tender, soft Extremities: normal range of motion, non-tender, no pedal edema Neurologic/Psych: microsoft bi architect II-XII nml as tested, no motor/sensory deficits, alert, normal mood/affect, oriented x 3 Skin: normal color, no jaundice, warm/dry, no rash Laboratory Results Last 24 Hours Test 04/29/17 12:00 04/29/17 12:10 04/29/17 16:33 04/29/17 17:35 Urine Color YELLOW Urine Appearance CLEAR Urine pH 5.0 Urine Specific [place] 1.042 Urine Protein NEG Urine Glucose (UA) 3+ Urine Ketones 3+ Urine Occult Blood NEG Urine Nitrite NEG Urine Bilirubin NEG Urine Urobilinogen NEG Urine Leukocyte Esterase NEG White Blood Count 16.17 K/uL Red Blood Count 5.37 M/uL Hemoglobin 18.3 g/dL Hematocrit 51.3 % Mean Corpuscular Volume 95.5 fL Mean Corpuscular Hemoglobin 34.1 pg Mean Corpuscular Hemoglobin Concent 35.7 g/dl Platelet Count 190 K/uL Mean Platelet Volume 11.1 fL Neutrophils (%) (Auto) 85.5 % Lymphocytes (%) (Auto) 8.2 % Monocytes (%) (Auto) 6.1 % Eosinophils (%) (Auto) 0.0 % Basophils (%) (Auto) 0.0 % Neutrophils # (Auto) 13.83 K/uL Lymphocytes # (Auto) 1.32 K/uL Monocytes # (Auto) 0.98 K/uL Eosinophils # (Auto) 0.00 K/uL Basophils # (Auto) 0.00 K/uL RDW Standard Deviation 44.2 fL RDW Coefficient of Variation 12.8 % Immature Granulocyte % (Auto) 0.2 % Immature Granulocyte # (Auto) 0.04 K/uL Sodium Level 136 mmol/L Potassium Level 4.6 mmol/L Chloride Level 100 mmol/L Carbon Dioxide Level 26 mmol/L Anion Gap 10.0 mmol/L Blood Urea Nitrogen 20 mg/dl Creatinine 1.40 mg/dl Est Creatinine Clear Calc Drug Dose 65.0 ml/min Estimated GFR () 63.7 Estimated GFR (Non- 55.0 BUN/Creatinine Ratio 14.1 Random Glucose 346 mg/dl Calcium Level 9.9 mg/dl Total Bilirubin 1.1 mg/dl Direct Bilirubin 0.2 mg/dl Aspartate Amino Transf (AST/SGOT) 11 U/L Alanine Aminotransferase (ALT/SGPT) 19 U/L Alkaline Phosphatase 79 U/L Total Protein 7.5 gm/dl Albumin 4.0 gm/dl Lipase 185 U/L Beta-Hydroxybutyric Acid 11.43 mg/dL Bedside Lactic Acid Venous 1.41 mmol/L Bedside Glucose 224 mg/dl Test 04/29/17 18:27 04/29/17 21:51 04/30/17 00:02 04/30/17 05:58 Bedside Glucose 199 mg/dl 237 mg/dl 192 mg/dl 217 mg/dl Test 04/30/17 06:36 04/30/17 08:15 White Blood Count 7.02 K/uL Red Blood Count 4.27 M/uL Hemoglobin 14.3 g/dL Hematocrit 41.0 % Mean Corpuscular Volume 96.0 fL Mean Corpuscular Hemoglobin 33.5 pg Mean Corpuscular Hemoglobin Concent 34.9 g/dl RDW Standard Deviation 44.5 fL RDW Coefficient of Variation 12.8 % Platelet Count 140 K/uL Mean Platelet Volume 10.8 fL Sodium Level 140 mmol/L Potassium Level 3.7 mmol/L Chloride Level 106 mmol/L Carbon Dioxide Level 29 mmol/L Anion Gap 4.0 mmol/L Blood Urea Nitrogen 15 mg/dl Creatinine 0.98 mg/dl Est Creatinine Clear Calc Drug Dose 92.8 ml/min Estimated GFR () 98.1 Estimated GFR (Non- 84.6 BUN/Creatinine Ratio 15.3 Random Glucose 225 mg/dl Calcium Level 8.3 mg/dl Bedside Glucose 179 mg/dl Impression Patient is a 56 year old male with acute onset of abd pain, nausea and vomiting and imaging showing ileitis. Ddx includes an acute infectious process and less likely IBD or TB. The constipation and rectal bleeding has been a chronic problem. Suspect he has internal hemorrhoids. At some point he should have an outpatient colonoscopy to further evaluate this, however, he needs to recover from this acute illness and be on a regular bowel regimen first. Plan - OK to advance diet. - IVF hydration. - Check stool studies once he has a BM. - Start regular bowel regimen prior to discharge. - Outpatient colonoscopy to be arranged. - Please call with questions.
[2017-04-30] MEDS: POLYETHYLENE (MIRALAX) 17 GM PACK PO SCH (12:15)
[2017-04-30] MEDS: DOCUSATE SODIUM 100 MG CAP PO SCH ×2 (12:15→20:59)
--- NOTE | 2017-04-30 14:05 | DIAGNOSTIC IMAGING REPORT ---
L PELVIS/UNILATERAL HIP 2-3VIEWS CLINICAL HISTORY: hip pain extending to knee on left COMPARISON STUDY: Abdomen and pelvis CT 04/29/2017. FINDINGS: Residual contrast within the colon from the recent abdomen and pelvis CT. This partially obscures the pelvis. No fracture or dislocation within the pelvis or hips. Cartilage spaces are maintained for age. The visualized sacrum appears intact. Soft tissues are unremarkable. Severe degenerative disc disease at L5-S1 with endplate sclerosis. IMPRESSION: No fracture or dislocation within the pelvis or hips. Electronically signed by: Wilder Hudson M.D. 04/30/2017 2:03 PM Dictated Date/Time: 04/30/2017 2:00 PM
[2017-04-30 15:00] VITALS: BP 146/62; PULSE 66; TEMP 36.9; O2SAT 98
--- NOTE | 2017-04-30 17:47 | Progress Note ---
Medicine Progress Note Date & Time of Visit: Apr 30, 2017 at 17:47. Subjective Patient is anxious to advance his diet and to have a BM. No overnight events noted. Tolerating clears. Passing flatus. No additional N/V. Complains of his left leg hurting when he walks and states its been ongoing for the last couple weeks. He also reports having intolerance to metformin and describes GI symptoms of feeling "acid and gas" in his upper GI tract. No diarrhea. Objective Last 8 Hrs Date Time Temp Pulse Resp B/P (MAP) Pulse Ox O2 Delivery O2 Flow Rate FiO2 04/30/17 15:20 Room Air 04/30/17 15:00 36.9 66 20 146/62 (90) 98 Room Air Physical Exam: GENERAL: Patient is in no acute distress. HEENT: No acute trauma, normocephalic atraumatic, mucous membranes moist, no nasal congestion, no scleral icterus. NECK: No stridor, trachea is midline. LUNGS: Clear to auscultation bilaterally, no wheeze, no rhonchi, breath sounds equal. HEART: Without murmurs gallops or rubs, regular rate and rhythm. ABDOMEN: Soft, tender in LQ, bowel sounds positive, no hepatosplenomegaly EXTREMITIES: No cyanosis or edema, full range of motion of all the joints without pain or difficulty, no signs for acute trauma. NEUROLOGIC: Oriented x 3, no acute motor or sensory deficits, no focal weakness. SKIN: No rash, no jaundice, no diaphoresis. Laboratory Results: Last 24 Hours Test 04/29/17 18:27 04/29/17 21:51 04/30/17 00:02 04/30/17 05:58 Bedside Glucose 199 mg/dl 237 mg/dl 192 mg/dl 217 mg/dl Test 04/30/17 06:36 04/30/17 08:15 04/30/17 17:08 White Blood Count 7.02 K/uL Red Blood Count 4.27 M/uL Hemoglobin 14.3 g/dL Hematocrit 41.0 % Mean Corpuscular Volume 96.0 fL Mean Corpuscular Hemoglobin 33.5 pg Mean Corpuscular Hemoglobin Concent 34.9 g/dl RDW Standard Deviation 44.5 fL RDW Coefficient of Variation 12.8 % Platelet Count 140 K/uL Mean Platelet Volume 10.8 fL Sodium Level 140 mmol/L Potassium Level 3.7 mmol/L Chloride Level 106 mmol/L Carbon Dioxide Level 29 mmol/L Anion Gap 4.0 mmol/L Blood Urea Nitrogen 15 mg/dl Creatinine 0.98 mg/dl Est Creatinine Clear Calc Drug Dose 92.8 ml/min Estimated GFR () 98.1 Estimated GFR (Non- 84.6 BUN/Creatinine Ratio 15.3 Random Glucose 225 mg/dl Calcium Level 8.3 mg/dl Bedside Glucose 179 mg/dl 178 mg/dl Date/Time Source Procedure Growth Status 04/30/17 13:40 Stool Shiga Toxin Test Pending Received 04/30/17 13:40 Stool Stool Culture Pending Received Assessment & Plan ABDOMINAL PAIN: -also presented with nausea/vomiting, and intermittent hematochezia -CT Abd/pelvis: suggest enteritis and small bowel obstruction -Surgery and GI consulted, appreciate recommendations -diet advanced to clears today -pt also reports intermittent rectal bleeding and weight loss. -stool for culture ordered -continue empiric IV abx ciprofloxacin and metronidazole. LEFT THIGH PAIN: -only occurs with ambulation -will obtain xray of left hip and left arterial doppler as patient is a tobacco user COUGH: -pt reports ongoing cough and weight loss. -patient is a tobacco smoker. -CXR: negative HYPERTENSION: -HCTZ held due to GI symptoms. -continue atenolol and lisinopril with hold parameters -monitor DM TYPE II: -as outpatient is on metformin, and glyburide; hold during hospitalization -on admission had elevated BSG in 300's, ketonuria, anion gap and bicarb normal -HgbA1c: 10.3 -continue on Lantus + correction scale NovoLog while admitted -would recommend insulin upon discharge BPH: -continue finasteride Current Inpatient Medications: Current Inpatient Medications Medications (Trade) Dose Ordered Sig/Zion Route Start Time Stop Time Status Last Admin Dose Admin Ioversol (Optiray 320) 111 ml UD PRN IV 04/29/17 12:15 05/03/17 12:14 Ondansetron HCl (Zofran Inj) 4 mg Q6H PRN IV 04/29/17 17:15 05/29/17 17:14 Dextrose/Lactated Ringer's 1,000 ml @ 150 mls/hr Q6H40M IV 04/29/17 17:30 05/29/17 17:29 04/30/17 13:21 150 MLS/HR Atenolol (Tenormin Tab) 50 mg DAILY PO 04/30/17 09:00 05/30/17 08:59 04/30/17 09:32 50 MG Lisinopril (Zestril Tab) 5 mg DAILY PO 04/30/17 09:00 05/30/17 08:59 04/30/17 09:32 5 MG Glucose (Glucose 40% Gel) 15-30 GRAMS 15 GRAMS... UD PRN PO 04/29/17 18:30 05/29/17 18:29 Glucose (Glucose Chew Tab) 4-8 Tablets 4 Tabl... UD PRN PO 04/29/17 18:30 05/29/17 18:29 Dextrose (Dextrose 50% 50ML Syringe) 25-50ML OF 50% DW IV FOR... UD PRN IV 04/29/17 18:30 05/29/17 18:29 Glucagon (Glucagon Inj) 1 mg UD PRN SQ 04/29/17 18:30 05/29/17 18:29 Ampicillin Sodium/ Sulbactam Sodium 3000 mg/Sodium Chloride 108 ml @ 200 mls/hr Q6H IV 04/29/17 22:00 05/09/17 21:59 04/30/17 16:18 200 MLS/HR Insulin Glargine (Lantus Solostar Pen) BSG LANTUS SQ < ... Q12@0600,1800 [place] 04/30/17 06:00 05/30/17 05:59 04/30/17 06:07 12 UNITS Insulin Aspart (novoLOG ASPART) SLIDING SCALE G... ACHS [place] 04/30/17 08:00 05/30/17 07:59 04/30/17 13:20 2 UNITS Polyethylene (Miralax Powder Packet) 17 gm DAILY PO 04/30/17 11:15 05/30/17 11:14 04/30/17 12:15 17 GM Docusate Sodium (coLACE CAP) 100 mg BID PO 04/30/17 11:15 05/30/17 11:14 04/30/17 12:15 100 MG
[2017-04-30 23:03] VITALS: BP 148/83; PULSE 67; TEMP 37; O2SAT 99
[2017-05-01] MEDS: D5W AND LACTATED RINGERS 1,000 ML IV SCH ×4 (02:19→22:24)
[2017-05-01] MEDS: AMPICILLIN/SULBACTAM SOD INJ 3,000 MG in SODIUM CHLORIDE 0.9% 100ML 100 ML IV SCH ×4 (03:37→22:23)
[2017-05-01] MEDS: INSULIN GLARGINE SOLOSTAR 100 UNITS/ML 3 ML PEN SC SCH ×2 (05:55→18:47)
[2017-05-01 06:35] LABS: ESTIMATED AVERAGE GLUCOSE 249 mg/dl; HA1C FLAG Normal (Normal)
[2017-05-01 07:13] LABS: HEMATOCRIT 38.4 % (42-52); MEAN CELL VOLUME 96.5 fL (80-100); MEAN CORPUSCULAR HEMOGLOBIN 33.9 pg (25-34); MEAN CORPUSCULAR HGB CONC 35.2 g/dl (32-36); MEAN PLATELET VOLUME 10.8 fL (7.4-10.4); PLATELET COUNT 145 K/uL (130-400); RED BLOOD COUNT 3.98 M/uL (4.7-6.1); WHITE BLOOD COUNT 6.17 K/uL (4.8-10.8)
[2017-05-01 07:22] VITALS: BP 116/64; PULSE 67; TEMP 37.1; O2SAT 99
--- NOTE | 2017-05-01 07:40 | DIAGNOSTIC IMAGING REPORT ---
LEFT LOWER EXTREMITY DOPPLER STUDY CLINICAL HISTORY: Left lower extremity pain with walking. COMPARISON STUDY: None. FINDINGS: Normal velocities and triphasic waveforms seen throughout the left lower tibia arterial system. No arterial occlusion. The left ankle-brachial index was 1.2. IMPRESSION: Normal left lower externally arterial Doppler study. Electronically signed by: Wilder Hudson M.D. 05/01/2017 7:39 AM Dictated Date/Time: 05/01/2017 7:37 AM
[2017-05-01 07:48] LABS: CALCIUM 8.4 mg/dl (8.5-10.1); CREATININE 0.99 mg/dl (0.60-1.40); POTASSIUM 3.8 mmol/L (3.5-5.1)
[2017-05-01] MEDS: DOCUSATE SODIUM 100 MG CAP PO SCH ×2 (08:44→21:00)
[2017-05-01] MEDS: POLYETHYLENE (MIRALAX) 17 GM PACK PO SCH (08:44)
[2017-05-01] MEDS: LISINOPRIL 5 MG TAB PO SCH (08:44)
[2017-05-01] MEDS: INSULIN ASPART 100 UNITS/ML 3 ML PEN SC SCH ×4 (08:50→22:21)
--- NOTE | 2017-05-01 09:40 | Gastroenterology Progress Note ---
Progress Note Date of Service: May 01, 2017 Subjective Pt evaluation today including: conversation w/ patient, physical exam, chart review, lab review, review of studies, review of inpatient medication list Mr. Elizondo is a 56 yr old admitted with constipation and intermittent rectal bleeding. CT on arrival with colitis. Hb 18 on arrival, 13 today. Today, eating a regular consistency diet. One loose brown moderate size BM yesterday w/o blood. Mild abdominal discomfort today. Review of Systems Constitutional: No fever ENT: No hearing loss Respiratory: No cough Cardiac: No chest pain Abdomen: + constipation, + GI bleeding, No pain, No nausea, No vomiting, No diarrhea Male : No dysuria Neuro: No memory loss Psych: No depression symptoms Heme: No abnormal bleeding/bruising Skin: No rash Medications Current Inpatient Medications Medications (Trade) Dose Ordered Sig/Zion Route Start Time Stop Time Status Last Admin Dose Admin Ioversol (Optiray 320) 111 ml UD PRN IV 04/29/17 12:15 05/03/17 12:14 Ondansetron HCl (Zofran Inj) 4 mg Q6H PRN IV 04/29/17 17:15 05/29/17 17:14 Dextrose/Lactated Ringer's 1,000 ml @ 150 mls/hr Q6H40M IV 04/29/17 17:30 05/29/17 17:29 05/01/17 02:19 150 MLS/HR Atenolol (Tenormin Tab) 50 mg DAILY PO 04/30/17 09:00 05/30/17 08:59 05/01/17 08:44 50 MG Lisinopril (Zestril Tab) 5 mg DAILY PO 04/30/17 09:00 05/30/17 08:59 05/01/17 08:44 5 MG Glucose (Glucose 40% Gel) 15-30 GRAMS 15 GRAMS... UD PRN PO 04/29/17 18:30 05/29/17 18:29 Glucose (Glucose Chew Tab) 4-8 Tablets 4 Tabl... UD PRN PO 04/29/17 18:30 05/29/17 18:29 Dextrose (Dextrose 50% 50ML Syringe) 25-50ML OF 50% DW IV FOR... UD PRN IV 04/29/17 18:30 05/29/17 18:29 Glucagon (Glucagon Inj) 1 mg UD PRN SQ 04/29/17 18:30 05/29/17 18:29 Ampicillin Sodium/ Sulbactam Sodium 3000 mg/Sodium Chloride 108 ml @ 200 mls/hr Q6H IV 04/29/17 22:00 05/09/17 21:59 05/01/17 03:37 200 MLS/HR Insulin Glargine (Lantus Solostar Pen) BSG LANTUS SQ < ... Q12@0600,1800 [place] 04/30/17 06:00 05/30/17 05:59 05/01/17 05:55 8 UNITS Insulin Aspart (novoLOG ASPART) SLIDING SCALE G... ACHS [place] 04/30/17 08:00 05/30/17 07:59 05/01/17 08:50 4 UNITS Polyethylene (Miralax Powder Packet) 17 gm DAILY PO 04/30/17 11:15 05/30/17 11:14 05/01/17 08:44 17 GM Docusate Sodium (coLACE CAP) 100 mg BID PO 04/30/17 11:15 05/30/17 11:14 05/01/17 08:44 100 MG Objective Vital Signs Date Time Temp Pulse Resp B/P (MAP) Pulse Ox O2 Delivery O2 Flow Rate FiO2 05/01/17 07:30 Room Air 05/01/17 07:22 37.1 67 19 116/64 (81) 99 Room Air 04/30/17 23:45 Room Air 04/30/17 23:03 37.0 67 16 148/83 (104) 99 Room Air 04/30/17 15:20 Room Air 04/30/17 15:00 36.9 66 20 146/62 (90) 98 Room Air Physical Exam General Appearance: no apparent distress Neck: supple, no adenopathy, no JVD Respiratory/Chest: lungs clear Cardiovascular: regular rate, rhythm, no JVD, no murmur Abdomen: soft, + abnormal bowel sounds (hyperactive), + tenderness (minimal, diffuse) Extremities: no pedal edema Neurologic/Psych: alert, normal mood/affect, oriented x 3 Skin: no jaundice (or icterus), warm/dry, no rash Laboratory Results Last 24 Hours Test 04/30/17 12:08 04/30/17 17:08 04/30/17 20:47 05/01/17 05:49 Bedside Glucose 198 mg/dl 178 mg/dl 211 mg/dl 154 mg/dl Test 05/01/17 06:35 White Blood Count 6.17 K/uL Red Blood Count 3.98 M/uL Hemoglobin 13.5 g/dL Hematocrit 38.4 % Mean Corpuscular Volume 96.5 fL Mean Corpuscular Hemoglobin 33.9 pg Mean Corpuscular Hemoglobin Concent 35.2 g/dl RDW Standard Deviation 44.0 fL RDW Coefficient of Variation 12.4 % Platelet Count 145 K/uL Mean Platelet Volume 10.8 fL Sodium Level 142 mmol/L Potassium Level 3.8 mmol/L Chloride Level 107 mmol/L Carbon Dioxide Level 29 mmol/L Anion Gap 6.0 mmol/L Blood Urea Nitrogen 11 mg/dl Creatinine 0.99 mg/dl Est Creatinine Clear Calc Drug Dose 91.9 ml/min Estimated GFR () 96.9 Estimated GFR (Non- 83.6 BUN/Creatinine Ratio 11.0 Random Glucose 169 mg/dl Calcium Level 8.4 mg/dl Assessment and Plan Mr. Elizondo is a 56 yr old male admitted with intermittent rectal bleeding, constipation. Stool culture negative. His rectal bleeding and abnormal CT most likely represents colitis, infectious vs. less likely ischemic or represents hemorrhoids but w/o explanation for the abnormal CT. Plan: 1. Stool for C-diff. 2. OP colonoscopy in 6 weeks. Our office will contact the shelter to arrange. 3. GI will sign off. Please notify us if rectal bleeding recurs. I have seen, examined, and agree with the plan as outlined by JOYCELYN Benitez. -Likely with self limited enteritis -Stool Studies and then will need colonoscopy -continue to advance diet as tolerated
[2017-05-01 10:49] VITALS: Ht 185.4 cm; Wt 84.7 kg
--- NOTE | 2017-05-01 12:56 | Surgery Progress Note ---
Surgery Progress Note Date of Service May 01, 2017. Subjective tolerating diet bowel movement Objective Vital Signs: Date Time Temp Pulse Resp B/P (MAP) Pulse Ox O2 Delivery O2 Flow Rate FiO2 05/01/17 07:30 Room Air 05/01/17 07:22 37.1 67 19 116/64 (81) 99 Room Air 04/30/17 23:45 Room Air 04/30/17 23:03 37.0 67 16 148/83 (104) 99 Room Air 04/30/17 15:20 Room Air 04/30/17 15:00 36.9 66 20 146/62 (90) 98 Room Air Laboratory Results: Results Past 24 Hours Test 04/30/17 17:08 04/30/17 20:47 05/01/17 05:49 05/01/17 06:35 Range/Units Bedside Glucose 178 211 154 70-99 mg/dl White Blood Count 6.17 4.8-10.8 K/uL Red Blood Count 3.98 4.7-6.1 M/uL Hemoglobin 13.5 14.0-18.0 g/dL Hematocrit 38.4 42-52 % Mean Corpuscular Volume 96.5 80-100 fL Mean Corpuscular Hemoglobin 33.9 25-34 pg Mean Corpuscular Hemoglobin Concent 35.2 32-36 g/dl RDW Standard Deviation 44.0 36.4-46.3 fL RDW Coefficient of Variation 12.4 11.5-14.5 % Platelet Count 145 130-400 K/uL Mean Platelet Volume 10.8 7.4-10.4 fL Sodium Level 142 136-145 mmol/L Potassium Level 3.8 3.5-5.1 mmol/L Chloride Level 107 98-107 mmol/L Carbon Dioxide Level 29 21-32 mmol/L Anion Gap 6.0 3-11 mmol/L Blood Urea Nitrogen 11 7-18 mg/dl Creatinine 0.99 0.60-1.40 mg/dl Est Creatinine Clear Calc Drug Dose 91.9 ml/min Estimated GFR () 96.9 Estimated GFR (Non- 83.6 BUN/Creatinine Ratio 11.0 10-20 Random Glucose 169 70-99 mg/dl Calcium Level 8.4 8.5-10.1 mg/dl Test 05/01/17 08:07 Range/Units Bedside Glucose 158 70-99 mg/dl Microbiology Results 04/30/17 Shiga Toxin Test, Received Pending 04/30/17 Stool Culture, Received Pending Assessment & Plan 05/01/17- no indication for surgical intervention followup with GI 04/30 17- no acute changes or significant pain- labs pending will try clear liquids. does not seem to need surgical intervention at this point, cont atbx 04/30 17- no acute changes or significant pain- labs pending will try clear liquids. does not seem to need surgical intervention at this point, cont atbx
[2017-05-01 15:53] VITALS: BP 155/87; PULSE 64; TEMP 36.7; O2SAT 96
--- NOTE | 2017-05-01 18:53 | Progress Note ---
Medicine Progress Note Date & Time of Visit: May 01, 2017 at 18:53. Objective Last 8 Hrs Date Time Temp Pulse Resp B/P (MAP) Pulse Ox O2 Delivery O2 Flow Rate FiO2 05/01/17 15:53 36.7 64 16 155/87 (109) 96 Room Air Physical Exam: GENERAL: Patient is in no acute distress. HEENT: No acute trauma, normocephalic atraumatic, mucous membranes moist, no nasal congestion, no scleral icterus. NECK: No stridor, trachea is midline. LUNGS: Clear to auscultation bilaterally, no wheeze, no rhonchi, breath sounds equal. HEART: Without murmurs gallops or rubs, regular rate and rhythm. ABDOMEN: Soft, tender in LQ, bowel sounds positive, no hepatosplenomegaly EXTREMITIES: No cyanosis or edema, full range of motion of all the joints without pain or difficulty, no signs for acute trauma. NEUROLOGIC: Oriented x 3, no acute motor or sensory deficits, no focal weakness. SKIN: No rash, no jaundice, no diaphoresis. Laboratory Results: Last 24 Hours Test 04/30/17 20:47 05/01/17 05:49 05/01/17 06:35 05/01/17 08:07 Bedside Glucose 211 mg/dl 154 mg/dl 158 mg/dl White Blood Count 6.17 K/uL Red Blood Count 3.98 M/uL Hemoglobin 13.5 g/dL Hematocrit 38.4 % Mean Corpuscular Volume 96.5 fL Mean Corpuscular Hemoglobin 33.9 pg Mean Corpuscular Hemoglobin Concent 35.2 g/dl RDW Standard Deviation 44.0 fL RDW Coefficient of Variation 12.4 % Platelet Count 145 K/uL Mean Platelet Volume 10.8 fL Sodium Level 142 mmol/L Potassium Level 3.8 mmol/L Chloride Level 107 mmol/L Carbon Dioxide Level 29 mmol/L Anion Gap 6.0 mmol/L Blood Urea Nitrogen 11 mg/dl Creatinine 0.99 mg/dl Est Creatinine Clear Calc Drug Dose 91.9 ml/min Estimated GFR () 96.9 Estimated GFR (Non- 83.6 BUN/Creatinine Ratio 11.0 Random Glucose 169 mg/dl Calcium Level 8.4 mg/dl Date/Time Source Procedure Growth Status 05/01/17 15:42 Stool C.difficile Toxin B Gene (PCR) - Final No C. difficile toxin B gene detected Complete Assessment & Plan ABDOMINAL PAIN: -also presented with nausea/vomiting, and intermittent hematochezia -CT Abd/pelvis: suggest enteritis and small bowel obstruction -Surgery and GI consulted, appreciate recommendations -diet advanced to clears today -pt also reports intermittent rectal bleeding and weight loss. -stool for culture ordered -continue empiric IV abx ciprofloxacin and metronidazole. LEFT THIGH PAIN: -only occurs with ambulation -will obtain xray of left hip and left arterial doppler as patient is a tobacco user COUGH: -pt reports ongoing cough and weight loss. -patient is a tobacco smoker. -CXR: negative HYPERTENSION: -HCTZ held due to GI symptoms. -continue atenolol and lisinopril with hold parameters -monitor DM TYPE II: -as outpatient is on metformin, and glyburide; hold during hospitalization -on admission had elevated BSG in 300's, ketonuria, anion gap and bicarb normal -HgbA1c: 10.3 -continue on Lantus + correction scale NovoLog while admitted -would recommend insulin upon discharge BPH: -continue finasteride Current Inpatient Medications: Current Inpatient Medications Medications (Trade) Dose Ordered Sig/Zion Route Start Time Stop Time Status Last Admin Dose Admin Ioversol (Optiray 320) 111 ml UD PRN IV 04/29/17 12:15 05/03/17 12:14 Ondansetron HCl (Zofran Inj) 4 mg Q6H PRN IV 04/29/17 17:15 05/29/17 17:14 05/01/17 17:10 4 MG Dextrose/Lactated Ringer's 1,000 ml @ 150 mls/hr Q6H40M IV 04/29/17 17:30 05/29/17 17:29 05/01/17 16:07 150 MLS/HR Atenolol (Tenormin Tab) 50 mg DAILY PO 04/30/17 09:00 05/30/17 08:59 05/01/17 08:44 50 MG Lisinopril (Zestril Tab) 5 mg DAILY PO 04/30/17 09:00 05/30/17 08:59 05/01/17 08:44 5 MG Glucose (Glucose 40% Gel) 15-30 GRAMS 15 GRAMS... UD PRN PO 04/29/17 18:30 05/29/17 18:29 Glucose (Glucose Chew Tab) 4-8 Tablets 4 Tabl... UD PRN PO 04/29/17 18:30 05/29/17 18:29 Dextrose (Dextrose 50% 50ML Syringe) 25-50ML OF 50% DW IV FOR... UD PRN IV 04/29/17 18:30 05/29/17 18:29 Glucagon (Glucagon Inj) 1 mg UD PRN SQ 04/29/17 18:30 05/29/17 18:29 Ampicillin Sodium/ Sulbactam Sodium 3000 mg/Sodium Chloride 108 ml @ 200 mls/hr Q6H IV 04/29/17 22:00 05/09/17 21:59 05/01/17 16:06 200 MLS/HR Insulin Glargine (Lantus Solostar Pen) BSG LANTUS SQ < ... Q12@0600,1800 [place] 04/30/17 06:00 05/30/17 05:59 05/01/17 18:47 8 UNITS Insulin Aspart (novoLOG ASPART) SLIDING SCALE G... ACHS [place] 04/30/17 08:00 05/30/17 07:59 05/01/17 18:46 3 UNITS Polyethylene (Miralax Powder Packet) 17 gm DAILY PO 04/30/17 11:15 05/30/17 11:14 05/01/17 08:44 17 GM Docusate Sodium (coLACE CAP) 100 mg BID PO 04/30/17 11:15 05/30/17 11:14 05/01/17 08:44 100 MG
[2017-05-01 22:57] VITALS: BP 153/85; PULSE 54; TEMP 36.9; O2SAT 98
[2017-05-02] MEDS: AMPICILLIN/SULBACTAM SOD INJ 3,000 MG in SODIUM CHLORIDE 0.9% 100ML 100 ML IV SCH ×2 (04:18→09:57)
[2017-05-02] MEDS: D5W AND LACTATED RINGERS 1,000 ML IV SCH (04:54)
[2017-05-02 05:56] LABS: HEMATOCRIT 38.3 % (42-52); MEAN CELL VOLUME 95.8 fL (80-100); MEAN CORPUSCULAR HGB CONC 34.5 g/dl (32-36); MEAN PLATELET VOLUME 10.2 fL (7.4-10.4); PLATELET COUNT 132 K/uL (130-400); WHITE BLOOD COUNT 5.42 K/uL (4.8-10.8)
[2017-05-02] MEDS: INSULIN GLARGINE SOLOSTAR 100 UNITS/ML 3 ML PEN SC SCH (06:24)
[2017-05-02 06:31] LABS: BUN/CREATININE RATIO 10.2 (10-20); CALCIUM 8.6 mg/dl (8.5-10.1); CREATININE 1.02 mg/dl (0.60-1.40); POTASSIUM 3.9 mmol/L (3.5-5.1)
[2017-05-02 07:37] VITALS: BP 132/79; PULSE 53; TEMP 36.7; O2SAT 98
[2017-05-02 08:30] VITALS: BP 135/80; PULSE 70
[2017-05-02] MEDS: DOCUSATE SODIUM 100 MG CAP PO SCH (08:34)
[2017-05-02] MEDS: LISINOPRIL 5 MG TAB PO SCH (08:35)
[2017-05-02] MEDS: POLYETHYLENE (MIRALAX) 17 GM PACK PO SCH (08:36)
[2017-05-02] MEDS: INSULIN ASPART 100 UNITS/ML 3 ML PEN SC SCH ×3 (08:42→18:16)
[2017-05-02] MEDS ORDERED: AMOXICILLIN/CLAVULANATE TAB 875 MG TAB PO ONE (10:42)
--- NOTE | 2017-05-02 10:58 | Progress Note ---
Internal Med Progress Note Date of Service: May 02, 2017. Provider Documentation: SUBJECTIVE: The patient was seen and examined Has had some loose stool Denies any abdominal pain,nausea and or vomiting OBJECTIVE: Vital Signs-as noted below Exam: General-No distress at rest Eyes-normal ENT-normal Neck-supple Lungs-clear to auscultate bilaterally Heart-Regular,no murmur appreciated Abdomen-Soft,benign,no masses,bowel sound present Extremities-No edema Neuro-AAOx3 No focal Neuro deficit Lab data as noted below. ASSESSMENT & PLAN: Non specific colitis/Ileitis Admitted with abdominal pain with nausea/vomiting, and intermittent hematochezia -CT Abd/pelvis: suggest enteritis and small bowel obstruction -Surgery and GI consulted, appreciate recommendations -Initial WCC was elevated ,was on NPO<IVF and IV antibiotic -Clinically a lot better -Has been tolerating regular food -Discontinue IVF and start oral Augmentin -likely back to [facility] this afternoon Diarrhea Stool for C Diff and Culture -negative Likely secondary to side effects of Antibiotic Imodium if worse LEFT THIGH PAIN: -only occurs with ambulation -X ray is negative for any significant pathology and US is negative for any Clot COUGH: -pt reports ongoing cough and weight loss. -patient is a tobacco smoker. -CXR: negative -resolved HYPERTENSION: -HCTZ held due to GI symptoms. -continue atenolol and lisinopril with hold parameters -controlled DM TYPE II: -as outpatient is on metformin, and glyburide; hold during hospitalization -on admission had elevated BSG in 300's, ketonuria, anion gap and bicarb normal -HgbA1c: 10.3 -continue on Lantus + correction scale NovoLog while admitted -would recommend insulin upon discharge for better control of Diabetes BPH: -continue finasteride DISPOSITION Likely back to [facility] this afternoon Vital Signs: Date Time Temp Pulse Resp B/P (MAP) Pulse Ox O2 Delivery O2 Flow Rate FiO2 05/02/17 08:30 70 135/80 (98) 05/02/17 07:40 Room Air 05/02/17 07:37 36.7 53 16 132/79 (96) 98 Room Air 05/01/17 23:15 Room Air 05/01/17 22:57 36.9 54 16 153/85 (107) 98 Room Air 05/01/17 16:10 Room Air 05/01/17 15:53 36.7 64 16 155/87 (109) 96 Room Air Lab Results: Results Past 24 Hours Test 05/01/17 12:12 05/01/17 16:53 05/01/17 21:15 05/02/17 05:45 Range/Units Bedside Glucose 247 172 225 70-99 mg/dl White Blood Count 5.42 4.8-10.8 K/uL Red Blood Count 4.00 4.7-6.1 M/uL Hemoglobin 13.2 14.0-18.0 g/dL Hematocrit 38.3 42-52 % Mean Corpuscular Volume 95.8 80-100 fL Mean Corpuscular Hemoglobin 33.0 25-34 pg Mean Corpuscular Hemoglobin Concent 34.5 32-36 g/dl RDW Standard Deviation 42.9 36.4-46.3 fL RDW Coefficient of Variation 12.2 11.5-14.5 % Platelet Count 132 130-400 K/uL Mean Platelet Volume 10.2 7.4-10.4 fL Sodium Level 140 136-145 mmol/L Potassium Level 3.9 3.5-5.1 mmol/L Chloride Level 106 98-107 mmol/L Carbon Dioxide Level 30 21-32 mmol/L Anion Gap 5.0 3-11 mmol/L Blood Urea Nitrogen 10 7-18 mg/dl Creatinine 1.02 0.60-1.40 mg/dl Est Creatinine Clear Calc Drug Dose 89.2 ml/min Estimated GFR () 93.5 Estimated GFR (Non- 80.6 BUN/Creatinine Ratio 10.2 10-20 Random Glucose 228 70-99 mg/dl Calcium Level 8.6 8.5-10.1 mg/dl Test 05/02/17 06:18 05/02/17 08:08 Range/Units Bedside Glucose 202 195 70-99 mg/dl Microbiology Results 05/01/17 C.difficile Toxin B Gene (PCR) - Final, Complete No C. difficile toxin B gene detected
[2017-05-02] MEDS ORDERED: LOPERAMIDE HCL 2 MG CAP PO PRN (11:00)
[2017-05-02] MEDS: LACTOBACILLUS ACIDOPHILUS (FLORANEX) TAB PO SCH ×2 (12:37→18:12)
[2017-05-02] MEDS ORDERED: INFLUENZA ADMINISTRATION CHARGE ONE (14:45)
[2017-05-02] MEDS ORDERED: INFLUENZA VIRUS QUAD VACCINE 0.5 ML SYR IM. ONE (14:45)
[2017-05-02] MEDS ORDERED: PNEUMOCOCCAL ADMINISTRATION CHARGE ONE (14:45)
[2017-05-02] MEDS ORDERED: PNEUMOCOCCAL POLYSACCHARIDES 25 MCG/0.5 ML VIAL/SYR IM. ONE (14:45)
[2017-05-02 15:09] VITALS: BP 157/88; PULSE 56; TEMP 37; O2SAT 98
[2017-05-02] MEDS ORDERED: AMOX1TAB43 PO (16:11)
[2017-05-02] MEDS ORDERED: LCTX PO (16:11)
--- NOTE | 2017-05-02 16:13 | Discharge Instructions ---
Discharge Instructions Date of Service May 02, 2017. Admission Reason for Admission: Abdominal Pain Discharge Discharge Diagnosis / Problem: Nonspecific Colitis/Ileaitis,Rectal Bleed - likely hemorrhoidal Discharge Goals Goal(s): Prevent Disease Progression Activity Recommendations Activity Limitations: resume your previous activity . Instructions / Follow-Up Instructions / Follow-Up As per the facility.GI will arrange Colonoscopy in 4 to 6 weeks Current Hospital Diet Patient's current hospital diet: Diabetes Type 2 Diet Discharge Diet Recommended Diet: Diabetes Type 2 Diet Pending Studies Studies pending at discharge: no Laboratory Results Hemoglobin A1c Test 04/30/17 06:36 Range/Units Estimated Average Glucose 249 mg/dl Hemoglobin A1c 10.3 H 4.5-5.6 % Medical Emergencies . Who to Call and When: Medical Emergencies: If at any time you feel your situation is an emergency, please call 911 immediately. . Non-Emergent Contact Non-Emergency issues call your: Primary Care Provider . Past History Medical & Surgical History: (1) Partial small bowel obstruction (2) Abdominal pain (3) Hypertension (4) Diabetes mellitus, type 2 (5) Weight loss (6) Gastrointestinal bleeding . "Provider Documentation" section prepared by Atul Mcginnis. . VTE Core Measure Inpt VTE Proph given/why not?: SCD's
[2017-05-02 16:30] VITALS: BP 157/88; PULSE 56; TEMP 37; O2SAT 98
--- NOTE | 2017-05-02 16:36 | Discharge Summary ---
Discharge Summary Date of Service May 02, 2017. Discharge Summary Admission Date: Apr 29, 2017 at 17:16 Discharge Date: May 02, 2017 Discharge Disposition: Home Principal Diagnosis: Nonspecific Colitis/Ileitis,Rectal Bleed -likely hemorrhoidal Secondary Diagnoses/Problems: Please see H&P and Hospital Progress note Consultations: GI and Surgery Medication Reconciliation New Medications: Amoxicillin & Pot Clavulanate (Amoxicillin/Clavulanate P) 1 Tab Tab 875 MG PO BIDM for 7 Days, #14 TAB Lactobacillus Acidophilus (Floranex) 1 Tab Tab 2 TAB PO TIDM for 10 Days, #60 TAB Continued Medications: Aspirin (Aspirin Ec) 81 Mg Tab 81 MG PO DAILY Atenolol (Tenormin) 50 Mg Tab 50 MG PO DAILY, TAB Finasteride (Proscar) 5 Mg Tab 5 MG PO HS, TAB Glyburide (Micronase) 5 Mg Tab 2 TAB PO BID, TAB Hydrochlorothiazide (Hctz) 25 Mg Tab 25 MG PO DAILY, TAB Insulin Human Regular (Humulin R) 100 Units/Ml Susp SC UD SS- 201-250=2 251-300=4 301-650=6 351-400=8 401-450=10 451-500=12 Lisinopril (Prinivil) 5 Mg Tab 5 MG PO DAILY, TAB Metformin Hcl (Glucophage) 1,000 Mg Tab 1000 MG PO BID, TAB Admission Information HPI (per Admitting provider): 56 YO male incarcerated at [facility]. History of hypertension, diabetes type 2, and other problems noted below. Developed abdominal pain 3 days ago. Patient describes lower abdominal pain that is constant, severe, nonradiating. Abdominal pain associated with nausea and vomiting. No bowel movement for a few day. He has noted intermittent rectal bleeding. Also experiencing fever, chills, sweats. Patient reports that he has lost about 30 lbs. Came to ED for evaluation. Symptoms improved after receiving IV morphine and ondansetron. Past Medical/Surgical History Chronic Medical Problems: (1) BPH (benign prostatic hypertrophy) (2) Diabetes mellitus, type 2 (3) History of prostatitis (4) Hypertension . Family History FATHER Diabetes mellitus Social History Smoking Status: Current Every Day Smoker Alcohol Use: none Drug Use: none Marital Status: Housing status: other ([facility]) Allergies Coded Allergies: No Known Allergies (Unverified , 04/29/17) Home Medications Scheduled Aspirin (Aspirin Ec), 81 MG PO DAILY Atenolol (Tenormin), 50 MG PO DAILY Finasteride (Proscar), 5 MG PO HS Glyburide (Micronase), 2 TAB PO BID Hydrochlorothiazide (Hctz), 25 MG PO DAILY Insulin Human Regular (Humulin R), SC UD Lisinopril (Prinivil), 5 MG PO DAILY Metformin Hcl (Glucophage), 1,000 MG PO BID Review of Systems Constitutional: + problem reported (as noted above in HPI) Eyes: + problem reported (occasional blurred vision) ENT: No nasal symptoms, No sore throat Respiratory: + cough (occasional), + shortness of breath (occasional) Cardiovascular: + palpitations (occasional), No chest pain Abdomen: + problem reported (as per HPI) Genitourinary - Male: No hematuria, No dysuria, No urinary frequency, No urinary urgency Neurologic: + problem reported (mild headache) Endocrine: No excessive thirst, No excessive urination Hematologic / Lymphatic: No abnormal bleeding/bruising Integumentary: No rash, No new/changing skin lesions Physical Exam Vital Signs Date Time Temp Pulse Resp B/P (MAP) Pulse Ox O2 Delivery O2 Flow Rate FiO2 04/29/17 16:28 102 122/77 96 Room Air 04/29/17 15:55 98 Room Air 04/29/17 13:56 100 18 142/88 98 Room Air 04/29/17 12:23 112 04/29/17 12:17 116 20 139/94 97 Room Air 04/29/17 10:39 36.8 129 20 127/90 97 Room Air General Appearance: WD/WN, no apparent distress Head: normocephalic, atraumatic Eyes: normal inspection, PERRL, EOMI, sclerae normal (eyelids and conjunctivae normal) ENT: normal ENT inspection, hearing grossly normal, pharynx normal Neck: supple, no adenopathy, thyroid normal, trachea midline Respiratory/Chest: no respiratory distress, no accessory muscle use, + rhonchi (few scattered rhonchi) Cardiovascular: regular rate, rhythm, no edema, no gallop, no JVD, no murmur Abdomen/GI: + pertinent finding (quiet bowel sounds, slightly distended, soft, moderate lower abdominal tenderness without rebound or guarding, no palpable masses or organomegaly) Extremities/Musculoskelatal: no calf tenderness, no pedal edema Neurologic/Psych: bioinformatics assistant II-XII nml as tested (PERRL, EOMI, no facial palsy, no dysarthria), no motor/sensory deficits (motor stength grossly intact), alert, normal mood/affect, oriented x 3 Skin: normal color, warm/dry, no rash Lymphatic: no adenopathy (cervical) Diagnostics Laboratory Results Results Past 24 Hours Test 04/29/17 12:00 04/29/17 12:10 04/29/17 16:33 Range/Units Urine Color YELLOW Urine Appearance CLEAR CLEAR Urine pH 5.0 4.5-7.5 Urine Specific Zanoni 1.042 1.000-1.030 Urine Protein NEG NEG Urine Glucose (UA) 3+ NEG Urine Ketones 3+ NEG Urine Occult Blood NEG NEG Urine Nitrite NEG NEG Urine Bilirubin NEG NEG Urine Urobilinogen NEG NEG Urine Leukocyte Esterase NEG NEG White Blood Count 16.17 4.8-10.8 K/uL Red Blood Count 5.37 4.7-6.1 M/uL Hemoglobin 18.3 14.0-18.0 g/dL Hematocrit 51.3 42-52 % Mean Corpuscular Volume 95.5 80-100 fL Mean Corpuscular Hemoglobin 34.1 25-34 pg Mean Corpuscular Hemoglobin Concent 35.7 32-36 g/dl Platelet Count 190 130-400 K/uL Mean Platelet Volume 11.1 7.4-10.4 fL Neutrophils (%) (Auto) 85.5 % Lymphocytes (%) (Auto) 8.2 % Monocytes (%) (Auto) 6.1 % Eosinophils (%) (Auto) 0.0 % Basophils (%) (Auto) 0.0 % Neutrophils # (Auto) 13.83 1.4-6.5 K/uL Lymphocytes # (Auto) 1.32 1.2-3.4 K/uL Monocytes # (Auto) 0.98 0.11-0.59 K/uL Eosinophils # (Auto) 0.00 0-0.5 K/uL Basophils # (Auto) 0.00 0-0.2 K/uL RDW Standard Deviation 44.2 36.4-46.3 fL RDW Coefficient of Variation 12.8 11.5-14.5 % Immature Granulocyte % (Auto) 0.2 % Immature Granulocyte # (Auto) 0.04 0.00-0.02 K/uL Sodium Level 136 136-145 mmol/L Potassium Level 4.6 3.5-5.1 mmol/L Chloride Level 100 98-107 mmol/L Carbon Dioxide Level 26 21-32 mmol/L Anion Gap 10.0 3-11 mmol/L Blood Urea Nitrogen 20 7-18 mg/dl Creatinine 1.40 0.60-1.40 mg/dl Est Creatinine Clear Calc Drug Dose 65.0 ml/min Estimated GFR () 63.7 Estimated GFR (Non- 55.0 BUN/Creatinine Ratio 14.1 10-20 Random Glucose 346 70-99 mg/dl Calcium Level 9.9 8.5-10.1 mg/dl Total Bilirubin 1.1 0.2-1 mg/dl Direct Bilirubin 0.2 0-0.2 mg/dl Aspartate Amino Transf (AST/SGOT) 11 15-37 U/L Alanine Aminotransferase (ALT/SGPT) 19 12-78 U/L Alkaline Phosphatase 79 45-117 U/L Total Protein 7.5 6.4-8.2 gm/dl Albumin 4.0 3.4-5.0 gm/dl Lipase 185 73-393 U/L Beta-Hydroxybutyric Acid 11.43 0.2-2.81 mg/dL Bedside Lactic Acid Venous 1.41 0.90-1.70 mmol/L Diagnostic Radiology CT SCAN OF THE ABDOMEN AND PELVIS WITH IV CONTRAST FINDINGS: Lung bases: The heart is normal in size and without pericardial effusion. The lung bases are clear noting dependent atelectasis. Liver: The contrast-enhanced liver is normal in size, contour, and attenuation. There is no intrahepatic biliary ductal dilatation. The hepatic veins and portal veins are patent. Gallbladder: Unremarkable. Spleen: Normal in size and attenuation. Pancreas: Unremarkable. Adrenal glands: Unremarkable. Kidneys: The contrast enhanced kidneys are normal in size and without hydronephrosis. The kidneys enhance symmetrically. Abdominal vasculature: The abdominal aorta is normal in course and caliber noting moderate atherosclerotic calcification. There is a moderate stenosis within the right common iliac artery seen on image #331. Bowel: There is a long segment of ileum in the right lower quadrant which is thick-walled and hyperemic with mucosal edema. There is surrounding interloop fluid. The upstream small bowel is distended and fluid-filled measuring up to 3.7 cm in diameter. This gradually transitions to decompressed distal small bowel and colon. No pneumatosis intestinalis or portal venous gas is seen. The appendix is well-visualized and normal. Peritoneum: There is no intraperitoneal free air. There is trace perihepatic and pelvic free fluid. There is a small fat-containing umbilical hernia. Lymphadenopathy: Numerous mildly enlarged mesenteric lymph nodes are likely on a reactive basis. These measure up to 2.0 cm in short axis. There is no retroperitoneal, pelvic sidewall, or inguinal lymphadenopathy. Pelvic viscera: The the prostate gland is enlarged and heterogeneous measuring 5.5 cm in transverse diameter. The bladder is distended and grossly unremarkable. Skeletal structures: There is a large posterior disc osteophyte complex at L5-S1. This likely contributes to acquired compromise of the central canal. Advanced degenerative endplate sclerosis is seen at L5-S1. No lytic or blastic lesions are seen. IMPRESSION: 1. There is a long segment of the distal ileum which is thick-walled, edematous, and hyperemic. The appearance is consistent with a nonspecific ileitis, likely on an infectious/inflammatory basis. 2. The upstream small bowel is distended and fluid-filled. This could represent partial obstruction secondary to ileal edema or possibly a reactive ileus. 3. There is a small volume of free fluid in the abdomen pelvis. No pneumatosis intestinalis, portal venous gas, or intraperitoneal free air is seen. 4. Prostatomegaly. 5. Numerous enlarged mesenteric lymph nodes are likely on a reactive basis. 6. Additional findings as above. Electronically signed by: Isreal Blackmon M.D. 04/29/2017 3:16 PM Dictated Date/Time: 04/29/2017 3:03 PM . EKG EKG performed at 12:[address] at 115 / minute, no acute ST or T-wave abnormalities. . Impression Assessment and Plan ABDOMINAL PAIN CT findings as noted above suggest enteritis and small bowel obstruction. Patient reports intermittent rectal bleeding for some time and weight loss. Consider infectious enteritis, ischemic bowel, inflammatory bowel disease, malignancy. NPO except ice chips, sips, meds. IV antibiotic therapy with ciprofloxacin and metronidazole. General Surgery consulted - ED provider discussed case with them. Consult GI. COUGH Patient reports chronic cough and weight loss. He is a smoker. Check chest x-ray. HYPERTENSION BP in ED 127/90. Hold HCTZ due to GI symptoms. Continue atenolol and lisinopril with sips of water. Follow and titrate Rx. DM TYPE 2 Managed with metformin, glyburide, metformin. Random blood sugar in ED 346. Received 5 units of regular insulin; repeat blood sugar in ED was in 200s. Elevated BHB and ketonuria noted, but anion gap only 10. No need for insulin infusion at this time. Check Hgb A1C. Hold oral agents during hospital stay. Lantus / NovoLog per protocol. BPH Resume finasteride once GI symptoms improve. VTE PROPHYLAXIS Moderate risk for VTE. No anticoagulants because of GI bleeding and possible need for surgical intervention. SCD's. Ambulate as able. DISPOSITION Admit to Med-Surg Unit. Expected return to [facility] under the care of their medical team their. . Advanced Directives Existing Living Will: No Existing Power of Metal Sorter: No VTE Prophylaxis VTE Risk Assessment Done? Y/N: Yes Risk Level: Moderate Given or contraindicated: SCD's <Electronically signed by Zack Holden M.D.> Signed: 04/29/172136 Signed: The status of this report is Signed * If report status is Draft, the document has not been finalized by the responsible provider. MNE: [facility] History and Physical Template <AttendingPhy>Suma Pina D.O.</AttendingPhy><EDPhy>Mikal Hayes M.D.</ EDPhy> <FamilyPhy>DENIZVasiliy</FamilyPhy> <PrimaryPhy>DENIZ kelsey</ PrimaryPhy><UnitNumber>[id number]</UnitNumber><VisitNumber>[id number]</ VisitNumber><PatientName>LAURY SARKAR [id number]</PatientName><DateOfBirth>1960 </DateOfBirth><Age>56</Age><Location>[facility]</Location><ServiceDate>04/29/17</ ServiceDate><CC>Zack Holden M.D. [facility]</CC><MNE>ACUTEMED</MNE> Addendum: 04/29/172145 Addendum: Zack Holden M.D. on 04/29/17 @ 21:45 Addendum Section National shortage of IV metronidazole. Will change antibiotic to IV ampicillin / sulbactam. . Physical Exam (per Admitting): General Appearance: WD/WN, no apparent distress Head: normocephalic, atraumatic Eyes: normal inspection, PERRL, EOMI, sclerae normal (eyelids and conjunctivae normal) ENT: normal ENT inspection, hearing grossly normal, pharynx normal Neck: supple, no adenopathy, thyroid normal, trachea midline Respiratory/Chest: no respiratory distress, no accessory muscle use, + rhonchi (few scattered rhonchi) Cardiovascular: regular rate, rhythm, no edema, no gallop, no JVD, no murmur Abdomen/GI: + pertinent finding (quiet bowel sounds, slightly distended, soft, moderate lower abdominal tenderness without rebound or guarding, no palpable masses or organomegaly) Extremities/Musculoskelatal: no calf tenderness, no pedal edema Neurologic/Psych: bioinformatics assistant II-XII nml as tested (PERRL, EOMI, no facial palsy, no dysarthria), no motor/sensory deficits (motor stength grossly intact), alert , normal mood/affect, oriented x 3 Skin: normal color, warm/dry, no rash Lymphatic: no adenopathy (cervical) Hospital Course Non specific colitis/Ileitis Admitted with abdominal pain with nausea/vomiting, and intermittent hematochezia -CT Abd/pelvis: suggest enteritis and small bowel obstruction -Surgery and GI consulted, appreciate recommendations -Initial WCC was elevated ,was on NPO<IVF and IV antibiotic -Clinically a lot better -Has been tolerating regular food -Discontinue IVF and start oral Augmentin -likely back to [facility] this afternoon Diarrhea Stool for C Diff and Culture -negative Likely secondary to side effects of Antibiotic Imodium if worse LEFT THIGH PAIN: -only occurs with ambulation -X ray is negative for any significant pathology and US is negative for any Clot COUGH: -pt reports ongoing cough and weight loss. -patient is a tobacco smoker. -CXR: negative -resolved HYPERTENSION: -HCTZ held due to GI symptoms. -continue atenolol and lisinopril with hold parameters -controlled DM TYPE II: -as outpatient is on metformin, and glyburide; hold during hospitalization -on admission had elevated BSG in 300's, ketonuria, anion gap and bicarb normal -HgbA1c: 10.3 -continue on Lantus + correction scale NovoLog while admitted -would recommend insulin upon discharge for better control of Diabetes BPH: -continue finasteride DISPOSITION Likely back to [facility] this afternoon Total time spent on discharge = 35 minutes This includes examination of the patient, discharge planning, medication reconciliation, and communication with other providers. Discharge Instructions Date of Service May 02, 2017. Admission Reason for Admission: Abdominal Pain Discharge Discharge Diagnosis / Problem: Nonspecific Colitis/Ileitis,Rectal Bleed - likely hemorrhoidal Discharge Goals Goal(s): Prevent Disease Progression Activity Recommendations Activity Limitations: resume your previous activity . Instructions / Follow-Up Instructions / Follow-Up As per the facility.GI will arrange Colonoscopy in 4 to 6 weeks Current Hospital Diet Patient's current hospital diet: Diabetes Type 2 Diet Discharge Diet Recommended Diet: Diabetes Type 2 Diet Pending Studies Studies pending at discharge: no Laboratory Results Hemoglobin A1c Test 04/30/17 06:36 Range/Units Estimated Average Glucose 249 mg/dl Hemoglobin A1c 10.3 H 4.5-5.6 % Medical Emergencies . Who to Call and When: Medical Emergencies: If at any time you feel your situation is an emergency, please call 911 immediately. . Non-Emergent Contact Non-Emergency issues call your: Primary Care Provider . Past History Medical & Surgical History: (1) Partial small bowel obstruction (2) Abdominal pain (3) Hypertension (4) Diabetes mellitus, type 2 (5) Weight loss (6) Gastrointestinal bleeding . "Provider Documentation" section prepared by Atul Mcginnis. . VTE Core Measure Inpt VTE Proph given/why not?: SCD's <Electronically signed by Atul Mcginnis M.D.> Signed: 05/02/17 1608 Additional Copies To [facility]
[2017-05-02] MEDS ORDERED: AMOXICILLIN/CLAVULANATE TAB 875 MG TAB PO SCH (17:45)
== END 2017-05-02 18:10 | DRG 392 ==
LOC: C.EDB 10:33 → C.MSN 17:16 → ENRESERV 17:24
PROVIDERS: ADMIT Hospitalist; ATTEND Internal Medicine
DX: K52.9 Noninfective gastroenteritis and colitis, unspecified (principal); K62.5 Hemorrhage of anus and rectum; K56.609 Unspecified intestinal obstruction, unspecified as to partial versus complete obstruction; R63.4 Abnormal weight loss; E11.9 Type 2 diabetes mellitus without complications; I10 Essential (primary) hypertension; F17.200 Nicotine dependence, unspecified, uncomplicated; Z79.4 Long term (current) use of insulin; Z79.82 Long term (current) use of aspirin; Z83.3 Family history of diabetes mellitus; R05 Cough

== ENCOUNTER 2024-08-27 19:05 | Inpatient (IN) ==
[2024-08-27 19:38] LABS: Basophils # (auto) 0.01 K/uL (0.00-0.20); Basophils % (auto) 0.2 %; Eosinophils # (auto) 0.03 K/uL (0.00-0.50); Eosinophils % (auto) 0.7 %; Hematocrit (blood only) 44.3 % (42.0-52.0); Hemoglobin 15.1 g/dl (14.0-18.0); Immature Granulocytes # (auto) 0.01 K/uL (0.01-0.20); Immature Granulocytes % (auto) 0.2 %; Lymphocytes # (auto) 1.47 K/uL (1.20-3.40); Lymphocytes % (auto) 35.4 %; Mean Corpuscular Hemoglobin 32.2 pg (25.0-34.0); Mean Corpuscular Hgb Conc 34.1 g/dL (32.0-36.0); Mean Corpuscular Volume 94.5 fL (80.0-100.0); Mean Platelet Volume 10.8 fL (9.4-12.4); Monocytes # (auto) 0.27 K/uL (0.11-0.59); Monocytes % (auto) 6.5 %; Neutrophils # (auto) 2.36 K/uL (1.40-6.50); Platelet Count 167 K/uL (130-400); RDW Coefficient of Variation 12.1 % (11.5-14.5); RDW Standard Deviation 41.4 fL (36.4-46.3); Red Blood Count 4.69 M/uL (4.70-6.10); White Blood Count 4.15 K/ul (4.8-10.8)
--- NOTE | 2024-08-27 19:54 | XRay Report ---
CHEST (PA ONLY): Reason for exam: Chest pain Comparison 04/29/2017 A single frontal view of the chest demonstrates the lung tolliver to be clear and normally expanded. The cardiovascular markings and pulmonary vascular pattern appear normal. The mediastinal structures and sujey are normal. Chronic elevation the right hemidiaphragm is stable. The bones and soft tissues are normal. IMPRESSION: Negative for active cardiopulmonary disease. Electronically signed by Pradip Handy 08-27-2024 7:54 PM
[2024-08-27 20:05] LABS: Partial Thromboplastin Ratio 0.9; Partial Thromboplastin Time 24 Seconds (21-31); Prothrombin Time 10.4 Seconds (9.0-12.0)
[2024-08-27 20:19] LABS: Albumin Level 4.5 gm/dl (3.4-5.0); BUN Creatinine Ratio 12.1 (10-20); Bilirubin,Total 0.6 mg/dl (0.2-1.0); Calcium 9.7 mg/dl (8.6-10.3); Creatinine Clr Calc Pharmacy 63.1 ml/min; Globulin 2.2 gm/dl (2.5-4.0); Potassium 4.7 mmol/L (3.5-5.1); Total Protein 6.7 gm/dl (6.0-8.3); Troponin I High Sensitivity 219.5 pg/ml (0-20)
[2024-08-27 20:29] LABS: Adenovirus PCR Not Detected (NotDetected); Bordetella parapertussis PCR Not Detected (NotDetected); Bordetella pertussis PCR Not Detected (NotDetected); Chlamydia pneumoniae PCR Not Detected (NotDetected); Coronavirus 229E PCR Not Detected (NotDetected); Coronavirus CoV-2 (COVID19)PCR Not Detected (NotDetected); Coronavirus HKU1 PCR Not Detected (NotDetected); Coronavirus NL63 PCR Not Detected (NotDetected); Coronavirus OC43PCR Not Detected (NotDetected); Human Metapneumovirus PCR Not Detected (NotDetected); Influenza A PCR Not Detected (NotDetected); Influenza B PCR Not Detected (NotDetected); Mycoplasma pneumoniae PCR Not Detected (NotDetected); Parainfluenza Virus 1 PCR Not Detected (NotDetected); Parainfluenza Virus 2 PCR Not Detected (NotDetected); Parainfluenza Virus 3 PCR Not Detected (NotDetected); Parainfluenza Virus 4 PCR Not Detected (NotDetected); Respiratory Syncytial VirusPCR Not Detected (NotDetected); Rhinovirus/Enterovirus PCR Not Detected (NotDetected)
--- NOTE | 2024-08-27 22:40 | Emergency Department Note ---
Impression & Plan Chest pain, Elevated troponin ED Provider Note CHIEF COMPLAINT: Chest pain HISTORY OF PRESENT ILLNESS: This 63-year-old male patient presents to the emergency department from [facility] for chest pain for 2 days. He reports he was walking, when the chest pain began. He reports minimal exertion. He reports no previous history of chest pain. He states the pain is a burning pain on the left side of the chest that has caused nausea, and shortness of breath. He reports episodes of tachycardia, and diaphoresis. He states he has a history of hypertension, hyperlipidemia, and DMII. The patient states he currently is free of chest pain, however it did not stop until arrival to the department. He is currently well-appearing, with stable vital signs otherwise. REVIEW OF SYSTEMS: A review of systems was performed with positives and pertinent negatives listed in the history of present illness. All other systems were reviewed and are negative. ALLERGIES: See below MEDICATIONS: See below PMH: See below PHYSICAL EXAM: VITALS: Vitals are noted on the nurse's note and reviewed by myself. Vital signs stable. GENERAL: 63-year-old male, in no acute distress, nondiaphoretic, well-developed well-nourished. SKIN: The skin was without rashes, erythema, edema, or bruising. HEAD: Normocephalic atraumatic. NECK: Supple without nuchal rigidity. No lymphadenopathy. No thyromegaly. Cervical spine is nontender. No JVD. HEART: Regular rate and rhythm without murmurs gallops or rubs. LUNGS: Clear to auscultation bilaterally without wheezes, rales or rhonchi. No retractions or accessory muscle use. ABDOMEN: Positive bowel sounds x 4. Soft, nontender, without masses or organomegaly. Plunkett sign negative. No guarding or rebound tenderness. NEURO: Patient was alert and oriented to person place and time. No focal neurological deficits. MEDICAL DECISION MAKING: The patient is a pleasant 63-year-old male who arrives to the emergency department for evaluation of the above-stated complaint. The patient arrived during a time of high acuity, and high-volume. Initial workup was performed in triage including a saline lock, CBC, CMP, lipase, troponin, chest x-ray, and urinalysis. CBC shows leukopenia 4.15, with a stable hemoglobin and hematocrit, CMP shows elevated glucose of 370, negative lipase. Initial troponin performed initial troponin performed at 1922, 219.5 with repeat at 2110, to 237.7. Chest x-ray per my interpretation shows no acute cardiopulmonary process. EKG shows normal sinus at a rate of 89 bpm, no ST elevation, depression, or ectopy. Previous for comparison from April, shows no significant changes. The patient will be admitted to the [facility] for further evaluation and workup. I spoke with [facility] Esp[facility], who agreed to accept the patient under his care. Please refer to his documentation. DIFFERENTIAL DIAGNOSIS: Cardiac ischemia, aortic dissection, pulmonary embolism, pneumothorax, pneumonia, pericarditis, myocarditis, esophageal rupture, GERD, cholecystitis, pancreatitis, musculoskeletal, as well as other pathologies. Continuous pvc monitor: Order was placed for continuous pvc monitor. Patient was placed on the pvc monitor. Patient was noted to be in normal sinus rhythm at an initial rate of 78 bpm. The chart was completed utilizing [employer] Speech voice recognition software. Grammatical errors, random word insertions, pronoun errors, and incomplete sentences are an occasional consequence of this system due to software limitations, ambient noise, and hardware issues. Any formal questions or concerns about the content, text, or information contained within the body of this dictation should be directly addressed to the physician for clarification. Past Med/Surg History Problem List (Updated 08/27/24 @ 22:51 by JOYCELYN Trinidad) Elevated troponin (Acute) Chest pain (Acute) History of prostatitis (Chronic) BPH (benign prostatic hypertrophy) (Chronic) Diabetes mellitus, type 2 (Chronic) Abdominal pain (Acute) Hypertension (Chronic) Weight loss (Acute) Gastrointestinal bleeding (Acute) Social History Smoking Status: Current some day smoker Tobacco Type: Cigarettes Preferred Language: Romansh Feels Safe at Home: Yes Allergies Allergies Allergy/AdvReac Type Severity Reaction Status Date / Time No Known Allergies Allergy Unverified 04/29/17 11:18 Home Meds Home Medications Medication Instructions Recorded Confirmed ATENOLOL (TENORMIN) 50 mg PO DAILY #0 tabs 10/28/13 LISINOPRIL (PRINIVIL) 5 mg PO DAILY #0 tabs 10/28/13 ASPIRIN (ASPIRIN EC) 81 mg PO DAILY ##0 04/29/17 Finasteride (Proscar) 5 mg PO HS #0 tabs 04/29/17 Glyburide (Micronase) 2 tab PO BID #0 tabs 04/29/17 HYDROCHLOROTHIAZIDE (HCTZ) 25 mg PO DAILY #0 tabs 04/29/17 Insulin Human Regular (Humulin R) SC UD ##0 04/29/17 METFORMIN HCL (GLUCOPHAGE) 1,000 mg PO BID #0 tabs 04/29/17 Previous Rx's Medication Instructions Recorded AMOXICILLIN & POT CLAVULANATE 875 mg PO BIDM 7 days #14 tabs 05/02/17 (AMOXICILLIN/CLAVULANATE P) Lactobacillus Acidophilus 2 tab PO TIDM 10 days #60 tabs 05/02/17 (Floranex) Results & Data (ED) Vital Signs Vital Signs - 24 hr 08/27/24 19:13 08/27/24 21:13 08/27/24 21:28 Temperature 37.0 C Temperature Source Oral Pulse Rate 92 H Pulse Rate [Finger] 78 Pulse Rate [Left Apical] 69 Pulse Rhythm [Finger] Regular Pulse Strength [Finger] Normal Respiratory Rate 18 18 20 Respiratory Effort / Characteristics Non-Labored Spontaneous Non-Labored Spontaneous Non-Labored Spontaneous Respiratory Depth Normal Normal Normal Respiratory Pattern Regular Regular Regular Blood Pressure 186/100 H Blood Pressure [Right Arm] 178/96 H 191/111 H Blood Pressure Mean 128 Blood Pressure Mean [Right Arm] 123 137 Blood Pressure Position Sitting Blood Pressure Position [Right Arm] Sitting Pulse Oximetry 97 98 99 Oxygen Delivery Method Room Air Room Air Room Air Sepsis Recent Fever Within 48 Hours No Sepsis New/Unexplained Change in Mental Status N/A Sepsis Action Taken by Nursing No Action Required 08/27/24 21:38 08/27/24 22:00 08/27/24 22:03 Temperature Temperature Source Pulse Rate 78 72 Pulse Rate [Finger] Pulse Rate [Left Apical] Pulse Rhythm [Finger] Pulse Strength [Finger] Respiratory Rate 16 Respiratory Effort / Characteristics Respiratory Depth Respiratory Pattern Blood Pressure 158/88 H Blood Pressure [Right Arm] Blood Pressure Mean 116 Blood Pressure Mean [Right Arm] Blood Pressure Position Blood Pressure Position [Right Arm] Pulse Oximetry 97 Oxygen Delivery Method Room Air Sepsis Recent Fever Within 48 Hours Sepsis New/Unexplained Change in Mental Status Sepsis Action Taken by Nursing 08/27/24 22:18 08/27/24 22:30 Temperature Temperature Source Pulse Rate 65 70 Pulse Rate [Finger] Pulse Rate [Left Apical] Pulse Rhythm [Finger] Pulse Strength [Finger] Respiratory Rate 12 17 Respiratory Effort / Characteristics Respiratory Depth Respiratory Pattern Blood Pressure 181/103 H Blood Pressure [Right Arm] Blood Pressure Mean 129 Blood Pressure Mean [Right Arm] Blood Pressure Position Blood Pressure Position [Right Arm] Pulse Oximetry 97 99 Oxygen Delivery Method Room Air Room Air Sepsis Recent Fever Within 48 Hours Sepsis New/Unexplained Change in Mental Status Sepsis Action Taken by Intermediate Medications Current Medication List: was personally reviewed by me Laboratory Data Attestation: I reviewed the patient's lab results. 08/27/24 19:22 08/27/24 19:22 Lab Results 08/27/24 08/27/24 Range/Units 19:22 21:10 WBC 4.15 L (4.8-10.8) K/ul RBC 4.69 L (4.70-6.10) M/uL Hgb 15.1 (14.0-18.0) g/dl Hct 44.3 (42.0-52.0) % MCV 94.5 (80.0-100.0) fL MCH 32.2 (25.0-34.0) pg MCHC 34.1 (32.0-36.0) g/dL RDW Std Deviation 41.4 (36.4-46.3) fL RDW Coeff of Anh 12.1 (11.5-14.5) % Plt Count 167 (130-400) K/uL MPV 10.8 (9.4-12.4) fL Immature Gran % (Auto) 0.2 % Neut % (Auto) 57.0 % Lymph % (Auto) 35.4 % [place] % (Auto) 6.5 % Eos % (Auto) 0.7 % Baso % (Auto) 0.2 % Neut # (Auto) 2.36 (1.40-6.50) K/uL Lymph # (Auto) 1.47 (1.20-3.40) K/uL [place] # (Auto) 0.27 (0.11-0.59) K/uL Eos # (Auto) 0.03 (0.00-0.50) K/uL Baso # (Auto) 0.01 (0.00-0.20) K/uL Immature Gran # (Auto) 0.01 (0.01-0.20) K/uL PT 10.4 (9.0-12.0) Seconds INR 1.0 (0.9-1.1) APTT 24 (21-31) Seconds PTT Ratio 0.9 Sodium 136 (136-145) mmol/L Potassium 4.7 (3.5-5.1) mmol/L Chloride 101 (98-107) mmol/L Carbon Dioxide 32 (21-32) mmol/L Anion Gap 3 (3-11) BUN 16 (6-23) mg/dl Creatinine 1.32 (0.6-1.4) mg/dl Est Cr Clr Drug Dosing 63.1 ml/min eGFR 59.86 BUN/Creatinine Ratio 12.1 (10-20) Glucose 370 H* (70-99(Fasting)) mg/dl Calcium 9.7 (8.6-10.3) mg/dl Total Bilirubin 0.6 (0.2-1.0) mg/dl AST 15 (13-39) U/L ALT 17 (7-52) U/L Alkaline Phosphatase 98 (34-104) U/L Troponin I High Sens 219.5 H* 237.7 H* (0-20) pg/ml Total Protein 6.7 (6.0-8.3) gm/dl Albumin 4.5 (3.4-5.0) gm/dl Globulin 2.2 L (2.5-4.0) gm/dl Albumin/Globulin Ratio 2.0 (0.9-2) Adenovirus (PCR) Not Detected (NotDetected) B. pertussis DNA (PCR) Not Detected (NotDetected) B.parapertussis DNA PCR Not Detected (NotDetected) C. pneumoniae DNA (PCR) Not Detected (NotDetected) Coronavirus OC43 (PCR) Not Detected (NotDetected) Coronavirus HKU1 (PCR) Not Detected (NotDetected) Coronavirus 229E (PCR) Not Detected (NotDetected) SARS-CoV-2 (PCR) Not Detected (NotDetected) Coronavirus NL63 (PCR) Not Detected (NotDetected) Human Metapneumovir PCR Not Detected (NotDetected) Influenza Type A (PCR) Not Detected (NotDetected) Influenza Type B (PCR) Not Detected (NotDetected) M. pneumoniae (PCR) Not Detected (NotDetected) Parainfluenza 1 (PCR) Not Detected (NotDetected) Parainfluenza 2 (PCR) Not Detected (NotDetected) Parainfluenza 3 (PCR) Not Detected (NotDetected) Parainfluenza 4 (PCR) Not Detected (NotDetected) RSV (PCR) Not Detected (NotDetected) Entero/Rhino (PCR) Not Detected (NotDetected) Imaging Data Attestation: I personally reviewed and interpreted this imaging study as follows: Radiologist's Impression: Chest X-Ray 08/27/24 19:18 CHEST (PA ONLY): Reason for exam: Chest pain Comparison 04/29/2017 A single frontal view of the chest demonstrates the lung tolliver to be clear and normally expanded. The cardiovascular markings and pulmonary vascular pattern appear normal. The mediastinal structures and sujey are normal. Chronic elevation the right hemidiaphragm is stable. The bones and soft tissues are normal. IMPRESSION: Negative for active cardiopulmonary disease. Electronically signed by Pradip Handy 08-27-2024 7:54 PM Discharge Plan Visit Data Chief Complaint: Chest Pain Stated Complaint: CHEST PAIN ED Provider: Isreal Cisse ED Midlevel Provider: Joyce Casanova Discharge Problem: Chest pain, Elevated troponin Forms Stand Alone Forms: My [facility] Prescriptions Prescriptions: No Action ATENOLOL (TENORMIN) 50 MG tablet 50 mg PO DAILY Qty: 0 LISINOPRIL (PRINIVIL) 5 MG tablet 5 mg PO DAILY Qty: 0 ASPIRIN (ASPIRIN EC) 81 MG tablet 81 mg PO DAILY Qty: 0 Finasteride (Proscar) 5 MG tablet 5 mg PO HS Qty: 0 Glyburide (Micronase) 5 MG tablet 2 tab PO BID Qty: 0 HYDROCHLOROTHIAZIDE (HCTZ) 25 MG tablet 25 mg PO DAILY Qty: 0 Insulin Human Regular (Humulin R) 100 UNITS/ML suspension SC UD Qty: 0 Patient Comments: SS- 201-250=2 251-300=4 301-650=6 351-400=8 401-450=10 451-500=12 METFORMIN HCL (GLUCOPHAGE) 1,000 MG tablet 1,000 mg PO BID Qty: 0 AMOXICILLIN & POT CLAVULANATE (AMOXICILLIN/CLAVULANATE P) 1 TAB tablet 875 mg PO BIDM 7 Days Qty: 14 0RF Lactobacillus Acidophilus (Floranex) 1 TAB tablet 2 tab PO TIDM 10 Days Qty: 60 0RF Referrals Referrals: Vasiliy GUAMAN [Primary Care Provider] -
--- NOTE | 2024-08-28 02:11 | History & Physical Report ---
Date of Service August 28, 2024 Assessment & Plan (1) Chest pain: Plan: 63-year-old male with past medical history significant for hypertension, hyperlipidemia, diabetes, GERD is coming from [facility] with chest pain. Patient says couple days ago had chest pain. Again yesterday whole day had chest pain on left-sided chest burning type pain which was severe in nature, no radiation but associated with some shortness of breath, sweating and dizziness and nausea. Patient states pain started when he was walking. The pain lasted until 6 PM. Currently pain resolved. Patient thinks the pain may come back if he walks again. Denies any fevers. No cough. No runny nose or sore throat. No earache. No headache. Vision is okay. Appetite has been okay. No abdominal pain. Normal bowel and bladder movements. Denies blood in stools or black stools. Currently resting comfortably and hemodynamically stable. Chest pain Possible non-ST elevated MS Initial troponin 219 and repeat is 237 Currently chest pain-free Will start on aspirin and IV heparin Continue home atenolol and statin Will follow serial cardiac enzymes and echo Telemetry N.p.o. Consult cardiology in a.m. for further recommendations Hypertension On atenolol and lisinopril we will monitor Hyperlipidemia On statin Diabetes Hold home medications Placed on Lantus 5 units daily and sliding scale for now glycemic pharmacy consult. Monitor closely Fall HbA1c levels GERD Protonix DVT prophylaxis IV heparin Disposition Telemetry Full code History of Present Illness Chief Complaint: Chest pain Primary Care Provider: DENIZ Urbanakelsey 63-year-old male with past medical history significant for hypertension, hyperlipidemia, diabetes, GERD is coming from [facility] with chest pain. Patient says couple days ago had chest pain. Again yesterday whole day had chest pain on left-sided chest burning type pain which was severe in nature, no radiation but associated with some shortness of breath, sweating and dizziness and nausea. Patient states pain started when he was walking. The pain lasted until 6 PM. Currently pain resolved. Patient thinks the pain may come back if he walks again. Denies any fevers. No cough. No runny nose or sore throat. No earache. No headache. Vision is okay. Appetite has been okay. No abdominal pain. Normal bowel and bladder movements. Denies blood in stools or black stools. Currently resting comfortably and hemodynamically stable. Past medical history. As mentioned above Past surgical history. Right foot surgery per patient Social history. Smokes e-cigarettes. Denies alcohol use or drug use Family history. Father had diabetes. Allergies Allergy/AdvReac Type Severity Reaction Status Date / Time No Known Allergies Allergy Unverified 04/29/17 11:18 Home Medications Medication Instructions Recorded Confirmed Type atenolol 50 mg tablet 50 mg PO DAILY 08/27/24 08/27/24 History atorvastatin 40 mg tablet 40 mg PO DAILY 08/27/24 08/27/24 History cyanocobalamin (vitamin B-12) 500 500 mcg PO DAILY 08/27/24 08/27/24 History mcg tablet insulin NPH isoph U-100 human 100 20 unit subcut DAILY 08/27/24 08/27/24 History unit/mL subcutaneous suspension (Novolin N NPH U-100 Insulin isophane) insulin NPH isoph U-100 human 100 20 unit subcut QPM 08/27/24 08/27/24 History unit/mL subcutaneous suspension (Novolin N NPH U-100 Insulin isophane) lisinopril 40 mg tablet 40 mg PO DAILY 08/27/24 08/27/24 History metformin 1,000 mg tablet 1,000 mg PO BID 08/27/24 08/27/24 History pantoprazole 20 mg tablet,delayed 20 mg PO DAILY 08/27/24 08/27/24 History release Past Med/Surg History Problem List (Updated 08/27/24 @ 22:51 by JOYCELYN Trinidad) Elevated troponin (Acute) Chest pain (Acute) History of prostatitis (Chronic) BPH (benign prostatic hypertrophy) (Chronic) Diabetes mellitus, type 2 (Chronic) Abdominal pain (Acute) Hypertension (Chronic) Weight loss (Acute) Gastrointestinal bleeding (Acute) Social History Smoking Status: Light tobacco smoker Tobacco Type: Cigarettes Do You Dip or Chew Tobacco: No; Hx Alcohol Use: No Hx Substance Use: No Preferred Language: Surinamese [employer] Required: No Current Living Situation: Other Other Information That Helps Us Care for You: No Feels Safe at Home: Yes Safety Concerns: Feels Safe At This Time Review of Systems Review of Systems: All systems reviewed & are unremarkable except as noted in HPI & below Physical Exam Physical Exam: General- Not in acute distress Head- atraumatic Eyes- PERRL. ENT- oropharynx clear Neck- supple, no JVD. Lungs- clear to auscultation no wheezing or crackles Heart- regular rate and rhythm; no murmur, no gallop. Abdomen- normal bowel sounds, soft, nontender, no distension Extremities- no pretibial edema, no erythema seen Neuro- alert, oriented PERRL, no facial palsy; no dysarthria; moves extremities Results & Data Results & Data Vital Signs (Past 12 Hours) Vital Signs Temp Pulse Pulse Pulse Resp BP BP 08/28/24 01:38 67 08/28/24 01:00 64 15 166/89 H 08/28/24 00:30 65 13 168/94 H 08/28/24 00:00 74 14 171/100 H 08/27/24 23:30 88 16 164/94 H 08/27/24 22:57 68 17 08/27/24 22:30 70 17 181/103 H 08/27/24 22:18 65 12 08/27/24 22:03 72 16 08/27/24 22:00 158/88 H 08/27/24 21:38 78 08/27/24 21:28 69 20 191/111 H 08/27/24 21:13 78 18 178/96 H 08/27/24 19:13 37.0 C 92 H 18 186/100 H Pulse Ox O2 Del Method 08/28/24 01:38 08/28/24 01:00 98 08/28/24 00:30 100 08/28/24 00:00 98 08/27/24 23:30 99 08/27/24 22:57 97 Room Air 08/27/24 22:30 99 Room Air 08/27/24 22:18 97 Room Air 08/27/24 22:03 97 Room Air 08/27/24 22:00 08/27/24 21:38 08/27/24 21:28 99 Room Air 08/27/24 21:13 98 Room Air 08/27/24 19:13 97 Room Air Diagnostic Findings Laboratory Results WBC 4.15 K/ul (4.8-10.8) L 08/27/24 19:22 RBC 4.69 M/uL (4.70-6.10) L 08/27/24 19:22 Hgb 15.1 g/dl (14.0-18.0) 08/27/24 19: Hct 44.3 % (42.0-52.0) 08/27/24: MCV 94.5 fL (80.0-100.0) 08/27/24 19: MCH 32.2 pg (25.0-34.0) 08/27/24: MCHC 34.1 g/dL (32.0-36.0) 08/27/24: RDW Std Deviation 41.4 fL (36.4-46.3) 08/27/24: RDW Coeff of Anh 12.1 % (11.5-14.5) 08/27/24: Plt Count 167 K/uL (130-400) 08/27/24: MPV 10.8 fL (9.4-12.4) 08/27/24: Immature Gran % (Auto) 0.2 % 08/27/24: Neut % (Auto) 57.0 % 08/27/24: Lymph % (Auto) 35.4 % 08/27/24: [place] % (Auto) 6.5 % 08/27/24: Eos % (Auto) 0.7 % 08/27/24: Baso % (Auto) 0.2 % 08/27/24: Neut # (Auto) 2.36 K/uL (1.40-6.50) 08/27/24: Lymph # (Auto) 1.47 K/uL (1.20-3.40) 08/27/24: [place] # (Auto) 0.27 K/uL (0.11-0.59) 08/27/24: Eos # (Auto) 0.03 K/uL (0.00-0.50) 08/27/24: Baso # (Auto) 0.01 K/uL (0.00-0.20) 08/27/24: Immature Gran # (Auto) 0.01 K/uL (0.01-0.20) 08/27/24: PT 10.4 Seconds (9.0-12.0) 08/27/24 19:22 INR 1.0 (0.9-1.1) 08/27/24 19:22 APTT 24 Seconds (21-31) 08/27/24 19:22 PTT Ratio 0.9 08/27/24 19:22 Sodium 136 mmol/L (136-145) 08/27/24 19:22 Potassium 4.7 mmol/L (3.5-5.1) 08/27/24 19:22 Chloride 101 mmol/L (98-107) 08/27/24 19:22 Carbon Dioxide 32 mmol/L (21-32) 08/27/24 19:22 Anion Gap 3 (3-11) 08/27/24 19:22 BUN 16 mg/dl (6-23) 08/27/24 19:22 Creatinine 1.32 mg/dl (0.6-1.4) 08/27/24 19:22 Est Cr Clr Drug Dosing 63.1 ml/min 08/27/24 19:22 eGFR 59.86 08/27/24 19:22 BUN/Creatinine Ratio 12.1 (10-20) 08/27/24 19:22 Glucose 370 mg/dl (70-99(Fasting)) H* 08/27/24 19:22 Calcium 9.7 mg/dl (8.6-10.3) 08/27/24 19:22 Total Bilirubin 0.6 mg/dl (0.2-1.0) 08/27/24 19:22 AST 15 U/L (13-39) 08/27/24 19:22 ALT 17 U/L (7-52) 08/27/24 19:22 Alkaline Phosphatase 98 U/L (34-104) 08/27/24 19:22 Troponin I High Sens 237.7 pg/ml (0-20) H* 08/27/24 21:10 Total Protein 6.7 gm/dl (6.0-8.3) 08/27/24 19:22 Albumin 4.5 gm/dl (3.4-5.0) 08/27/24 19:22 Globulin 2.2 gm/dl (2.5-4.0) L 08/27/24 19:22 Albumin/Globulin Ratio 2.0 (0.9-2) 08/27/24 19:22 Adenovirus (PCR) Not Detected (NotDetected) 08/27/24 19:22 B. pertussis DNA (PCR) Not Detected (NotDetected) 08/27/24 19:22 B.parapertussis DNA PCR Not Detected (NotDetected) 08/27/24 19:22 C. pneumoniae DNA (PCR) Not Detected (NotDetected) 08/27/24 19:22 Coronavirus OC43 (PCR) Not Detected (NotDetected) 08/27/24 19:22 Coronavirus HKU1 (PCR) Not Detected (NotDetected) 08/27/24 19:22 Coronavirus 229E (PCR) Not Detected (NotDetected) 08/27/24 19:22 SARS-CoV-2 (PCR) Not Detected (NotDetected) 08/27/24 19:22 Coronavirus NL63 (PCR) Not Detected (NotDetected) 08/27/24 19:22 Human Metapneumovir PCR Not Detected (NotDetected) 08/27/24 19:22 Influenza Type A (PCR) Not Detected (NotDetected) 08/27/24 19:22 Influenza Type B (PCR) Not Detected (NotDetected) 08/27/24 19:22 M. pneumoniae (PCR) Not Detected (NotDetected) 08/27/24 19:22 Parainfluenza 1 (PCR) Not Detected (NotDetected) 08/27/24 19:22 Parainfluenza 2 (PCR) Not Detected (NotDetected) 08/27/24 19:22 Parainfluenza 3 (PCR) Not Detected (NotDetected) 08/27/24 19:22 Parainfluenza 4 (PCR) Not Detected (NotDetected) 08/27/24 19:22 RSV (PCR) Not Detected (NotDetected) 08/27/24 19:22 Entero/Rhino (PCR) Not Detected (NotDetected) 08/27/24 19:22 Impressions Chest X-Ray 08/27/24 19:18 CHEST (PA ONLY): Reason for exam: Chest pain Comparison 04/29/2017 A single frontal view of the chest demonstrates the lung tolliver to be clear and normally expanded. The cardiovascular markings and pulmonary vascular pattern appear normal. The mediastinal structures and sujey are normal. Chronic elevation the right hemidiaphragm is stable. The bones and soft tissues are normal. IMPRESSION: Negative for active cardiopulmonary disease. Electronically signed by Pradip Handy 08-27-2024 7:54 PM ECG Additional Comments: ECG. Normal sinus rhythm rate of 89. Nonspecific T wave abnormality in anterior leads. Code Status & VTE Plan VTE Prophylaxis Plan VTE Prophylaxis will be ordered: Yes
[2024-08-28] MEDS: HEPARIN SOD (PORCINE) 1000 UNIT/ML IV ONE (02:53)
[2024-08-28] MEDS: HEPARIN 25000 UNIT/500 ML D5W 25,000 UNITS/500 ML BAG IV SCH (02:53)
[2024-08-28] MEDS: ASPIRIN 81 MG CHEW PO STA (02:54)
[2024-08-28] MEDS: Heparin IV Adult Wt-Based Low-Dose w/ INITIAL Bolus Protocol IV SCH (03:30)
[2024-08-28] MEDS ORDERED: PHARMACY GLYCEMIC MGMT CONSULT PRN (03:59)
[2024-08-28] MEDS ORDERED: DEXTROSE 50% 50 ML SYRINGE IV PRN (03:59)
[2024-08-28] MEDS ORDERED: POLYETHYLENE (MIRALAX) 17 GM PACK PO PRN (03:59)
[2024-08-28] MEDS ORDERED: NITROGLYCERIN SL 0.4 MG/TAB TAB SL PRN (03:59)
[2024-08-28] MEDS ORDERED: CARBOHYDRATES FOR HYPOGLYCEMIA PO PRN (03:59)
[2024-08-28] MEDS ORDERED: GLUCOSE 40% GEL 15 GM TUBE PO PRN (03:59)
[2024-08-28] MEDS ORDERED: GLUCAGON FOR INJ 1 MG VIAL SQ PRN (03:59)
[2024-08-28] MEDS ORDERED: GLUCOSE 10 TAB/TUBE PO PRN (03:59)
[2024-08-28] MEDS ORDERED: ACETAMINOPHEN 325 MG TAB PO PRN (03:59)
[2024-08-28] MEDS: INSULIN ASPART PER UNIT CHARGE SC SCH ×3 (04:57→23:49)
[2024-08-28 06:35] LABS: Basophils # (auto) 0.01 K/uL (0.00-0.20); Basophils % (auto) 0.2 %; Eosinophils # (auto) 0.06 K/uL (0.00-0.50); Eosinophils % (auto) 1.2 %; Hematocrit (blood only) 41.4 % (42.0-52.0); Hemoglobin 14.4 g/dl (14.0-18.0); Immature Granulocytes # (auto) 0.01 K/uL (0.01-0.20); Immature Granulocytes % (auto) 0.2 %; Lymphocytes # (auto) 2.39 K/uL (1.20-3.40); Lymphocytes % (auto) 47.2 %; Mean Corpuscular Hgb Conc 34.8 g/dL (32.0-36.0); Mean Platelet Volume 11.5 fL (9.4-12.4); Monocytes # (auto) 0.41 K/uL (0.11-0.59); Monocytes % (auto) 8.1 %; Neutrophils # (auto) 2.18 K/uL (1.40-6.50); Neutrophils % (auto) 43.1 %; Platelet Count 164 K/uL (130-400); RDW Coefficient of Variation 11.9 % (11.5-14.5); RDW Standard Deviation 41.2 fL (36.4-46.3); Red Blood Count 4.36 M/uL (4.70-6.10); White Blood Count 5.06 K/ul (4.8-10.8)
[2024-08-28 06:52] LABS: BUN Creatinine Ratio 12.6 (10-20); Calcium 9.1 mg/dl (8.6-10.3); Potassium 4.1 mmol/L (3.5-5.1)
[2024-08-28 07:05] LABS: Troponin I High Sensitivity 380.2 pg/ml (0-20)
[2024-08-28] MEDS: CYANOCOBALAMIN (B-12) 500 MCG TABLET PO SCH (07:15)
[2024-08-28] MEDS: lisinopril 40 MG TAB PO SCH (07:15)
[2024-08-28] MEDS: ATORVASTATIN 40 MG TAB PO SCH (07:15)
[2024-08-28 07:17] LABS: Estimated Average Glucose 237 mg/dl; Hemoglobin A1C 9.9 % (4.5-5.6)
[2024-08-28] MEDS: ASPIRIN 81 MG ECTAB PO SCH (08:41)
[2024-08-28] MEDS: PANTOprazole 40 MG TAB PO SCH (08:41)
[2024-08-28] MEDS: ATENOLOL 50 MG TABLET PO SCH (08:41)
[2024-08-28] MEDS: LANTUS PER UNIT CHARGE SQ SCH (09:22)
[2024-08-28] MEDS: ASPIRIN 81 MG CHEW PO ONE (09:25)
--- NOTE | 2024-08-28 09:34 | Cardiology Consultation ---
Date of Consultation August 28, 2024 History of Present Illness Attending Physician: Earl Winston MD History of Present Illness Mr. Elizondo is a 63 year old male seen in cardiology consultation per the request of Dr Esparza for the evaluation chest pain and clinical concern of NSTEMI. Patient states he has been having left sided chest pain with Exertion such as walking for the last 2 days. Most recent episode was yesterday afternoon after walking a short distance. At the time of my evaluation in the emergency room, [address], he was comfortable and chest pain free. Denies any recent fevers, chills, or bleeding problems. Denies allergies Past Medical History: Type 2 diabetes mellitus for which she is on insulin diagnosed in around 1996 Hypertension Dyslipidemia History of past gastrointestinal bleeding per his chart Family History: Denies history of coronary heart disease Social History: currently and inmate. Occasional cigarette smoking Allergies Allergy/AdvReac Type Severity Reaction Status Date / Time No Known Allergies Allergy Unverified 04/29/17 11:18 Home Medications Medication Instructions Recorded Confirmed Type atenolol 50 mg tablet 50 mg PO DAILY 08/27/24 08/27/24 History atorvastatin 40 mg tablet 40 mg PO DAILY 08/27/24 08/27/24 History cyanocobalamin (vitamin B-12) 500 500 mcg PO DAILY 08/27/24 08/27/24 History mcg tablet insulin NPH isoph U-100 human 100 20 unit subcut DAILY 08/27/24 08/27/24 History unit/mL subcutaneous suspension (Novolin N NPH U-100 Insulin isophane) insulin NPH isoph U-100 human 100 20 unit subcut QPM 08/27/24 08/27/24 History unit/mL subcutaneous suspension (Novolin N NPH U-100 Insulin isophane) lisinopril 40 mg tablet 40 mg PO DAILY 08/27/24 08/27/24 History metformin 1,000 mg tablet 1,000 mg PO BID 08/27/24 08/27/24 History pantoprazole 20 mg tablet,delayed 20 mg PO DAILY 08/27/24 08/27/24 History release Patient History Social History Smoking Status: Light tobacco smoker Tobacco Type: Cigarettes Do You Dip or Chew Tobacco: No; Hx Alcohol Use: No Hx Substance Use: No Preferred Language: Tajik Physician Coder Required: No Current Living Situation: Other Other Information That Helps Us Care for You: No Feels Safe at Home: Yes Safety Concerns: Feels Safe At This Time Review of Systems Review of Systems: All systems reviewed & are unremarkable except as noted in HPI & below Physical Exam Physical Exam: General: no acute distress and stated age Eyes: conjunctiva are pink and non-injected, sclera clear Neck: normal jugular venous pulse, no hepatojugular reflux Chest: normal shape and normal respiratory effort Lungs: clear to auscultation and percussion Cardiac Exam: - regular heart sounds, no murmurs, rubs, or gallops, no jugular venous distention Abdomen: abdomen soft, non-tender, no abnormal masses and no hepatosplenomegaly Musculoskeletal: no gait disturbance, no weakness Extremities: no edema and no cyanosis 2+ bilateral radial artery pulses Neuro:awake, conversant, follows commands, no focal motor deficits Psych: appropriate affect and insight. Results & Data Vital Signs (Past 12 Hours) Vital Signs Temp Pulse Pulse Resp BP BP Pulse Ox 08/28/24 08:44 65 18 158/94 H 96 08/28/24 07:04 63 08/28/24 06:30 65 14 178/101 H 98 08/28/24 06:00 64 16 183/103 H 98 08/28/24 05:30 66 18 198/114 H 100 08/28/24 05:01 71 19 165/128 H 98 08/28/24 04:57 65 13 165/128 H 100 08/28/24 04:30 63 13 181/107 H 98 08/28/24 04:09 37.0 C 62 20 172/92 H 98 08/28/24 03:30 63 17 172/92 H 98 08/28/24 02:00 74 19 176/99 H 100 08/28/24 01:38 67 08/28/24 01:00 65 14 166/89 H 99 08/28/24 01:00 64 15 166/89 H 98 08/28/24 00:30 65 13 168/94 H 100 08/28/24 00:00 74 14 171/100 H 98 08/27/24 23:30 88 16 164/94 H 99 08/27/24 22:57 68 17 97 08/27/24 22:30 70 17 181/103 H 99 08/27/24 22:18 65 12 97 02/11/25 22:03 72 16 97 08/27/24 22:00 158/88 H 08/27/24 21:38 78 08/27/24 21:28 69 20 191/111 H 99 O2 Del Method 08/28/24 08:44 Room Air 08/28/24 07:04 08/28/24 06:30 08/28/24 06:00 08/28/24 05:30 08/28/24 05:01 08/28/24 04:57 08/28/24 04:30 08/28/24 04:09 Room Air 08/28/24 03:30 08/28/24 02:00 08/28/24 01:38 08/28/24 01:00 08/28/24 01:00 08/28/24 00:30 08/28/24 00:00 08/27/24 23:30 08/27/24 22:57 Room Air 08/27/24 22:30 Room Air 08/27/24 22:18 Room Air 08/27/24 22:03 Room Air 08/27/24 22:00 08/27/24 21:38 08/27/24 21:28 Room Air Laboratory Results Cardiac Enzymes 08/27/24 08/27/24 08/28/24 Range/Units 19:22 21:10 05:50 AST 15 (13-39) U/L Troponin I High Sens 219.5 H* 237.7 H* 380.2 H* D (0-20) pg/ml Coagulation 08/27/24 Range/Units 19:22 PT 10.4 (9.0-12.0) Seconds APTT 24 (21-31) Seconds CBC 08/27/24 08/28/24 Range/Units 19:22 05:50 WBC 4.15 L 5.06 (4.8-10.8) K/ul RBC 4.69 L 4.36 L (4.70-6.10) M/uL Hgb 15.1 14.4 (14.0-18.0) g/dl Hct 44.3 41.4 L (42.0-52.0) % Plt Count 167 164 (130-400) K/uL Neut # (Auto) 2.36 2.18 (1.40-6.50) K/uL Lymph # (Auto) 1.47 2.39 (1.20-3.40) K/uL [place] # (Auto) 0.27 0.41 (0.11-0.59) K/uL Eos # (Auto) 0.03 0.06 (0.00-0.50) K/uL Baso # (Auto) 0.01 0.01 (0.00-0.20) K/uL Comprehensive Metabolic Panel 08/27/24 08/28/24 Range/Units 19:22 05:50 Sodium 136 139 (136-145) mmol/L Potassium 4.7 4.1 (3.5-5.1) mmol/L Chloride 101 106 (98-107) mmol/L Carbon Dioxide 32 30 (21-32) mmol/L BUN 16 14 (6-23) mg/dl Creatinine 1.32 1.11 (0.6-1.4) mg/dl Glucose 370 H* 195 H (70-99(Fasting)) mg/dl Calcium 9.7 9.1 (8.6-10.3) mg/dl AST 15 (13-39) U/L ALT 17 (7-52) U/L Alkaline Phosphatase 98 (34-104) U/L Total Protein 6.7 (6.0-8.3) gm/dl Albumin 4.5 (3.4-5.0) gm/dl Intake and Output 08/27/24 08/28/24 08/28/24 22:59 06:59 14:59 Output Total 700 / 700 Balance -700 / -700 Output: Urine 700 / 700 Other: Weight 91.1 kg 91.1 kg Weight Measurement Method Chair Scale Built in [facility] Diagnostic Findings Initial EKG performed 08/27/2024 at 1921, interpreted independently: Sinus rhythm 89 bpm, subtle J-point elevation noted in leads V1 and V2, no ST segment depression Repeat EKG performed 08/28/2024 at 8:39 AM and interpreted independently: Sinus rhythm at 60 bpm, first-degree AV block, T wave inversions in leads, V2, V3, V4 consistent with anterior, anteroseptal ischemia Summary transthoracic echocardiogram performed this morning 08/28/2024 and interpret independently: There is mild concentric left ventricular hypertrophy. There is a moderate sized apical, septal, and anteroseptal wall motion abnormality with hypokinesis of the segments. Left ventricular systolic function is mildly reduced. Left Ventricular Ejection Fraction = 40-45%. Grade I diastolic dysfunction, (abnormal relaxation pattern). There is no significant valvular disease. No prior studies are available for direct comparison.
--- NOTE | 2024-08-28 10:00 | Pre Anesthesia Assessment ---
Date of Service August 28, 2024 Pre Sedation Assessment Vital Signs Temp Pulse Pulse Pulse Resp BP BP 08/28/24 09:34 75 18 08/28/24 08:44 65 18 158/94 H 08/28/24 07:04 63 08/28/24 06:30 65 14 178/101 H 08/28/24 06:00 64 16 183/103 H 08/28/24 05:30 66 18 198/114 H 08/28/24 05:01 71 19 165/128 H 08/28/24 04:57 65 13 165/128 H 08/28/24 04:30 63 13 181/107 H 08/28/24 04:09 98.6 F 62 20 172/92 H 08/28/24 03:30 63 17 172/92 H 08/28/24 02:00 74 19 176/99 H 08/28/24 01:38 67 08/28/24 01:00 65 14 166/89 H 08/28/24 01:00 64 15 166/89 H 08/28/24 00:30 65 13 168/94 H 08/28/24 00:00 74 14 171/100 H 08/27/24 23:30 88 16 164/94 H 08/27/24 22:57 68 17 08/27/24 22:30 70 17 181/103 H 08/27/24 22:18 65 12 08/27/24 22:03 72 16 08/27/24 22:00 158/88 H 08/27/24 21:38 78 08/27/24 21:28 69 20 191/111 H 08/27/24 21:13 78 18 178/96 H 08/27/24 19:13 98.6 F 92 H 18 186/100 H Pulse Ox O2 Del Method 08/28/24 09:34 98 Room Air 08/28/24 08:44 96 Room Air 08/28/24 07:04 08/28/24 06:30 98 08/28/24 06:00 98 08/28/24 05:30 100 08/28/24 05:01 98 08/28/24 04:57 100 08/28/24 04:30 98 08/28/24 04:09 98 Room Air 08/28/24 03:30 98 08/28/24 02:00 100 08/28/24 01:38 08/28/24 01:00 99 08/28/24 01:00 98 08/28/24 00:30 100 08/28/24 00:00 98 08/27/24 23:30 99 08/27/24 22:57 97 Room Air 08/27/24 22:30 99 Room Air 08/27/24 22:18 97 Room Air 08/27/24 22:03 97 Room Air 08/27/24 22:00 08/27/24 21:38 08/27/24 21:28 99 Room Air 08/27/24 21:13 98 Room Air 08/27/24 19:13 97 Room Air Cardiovascular RRR, no murmur, no edema Respiratory + respiratory effort normal Pre-Sedation Airway Assessment Smoking Status: Light tobacco smoker Hx Sleep Apnea: No Hx Difficult Intubation: No Short, Thick Neck: No Thyromental Distance: > or= 3.5 Finger Breadths Oral Cavity: + WNL Mallampati Class: III ASA: ASA3 NPO Status Date of Last Intake of Solid Food: 08/27/24 Procedure Planning Contraindications for Sedation: none Current Medications Reviewed: Yes Notes The planned sedation has been discussed with the patient. Informed Consent was obtained. I have identified the patient, determined the appropriateness of sedation and have assessed the patient immediately prior to the procedure. All medicine(s) and interventions are by my order.
[2024-08-28] MEDS: NITROGLYCERIN/D5W 100MCG/ML 20ML SYR ONE (10:09)
[2024-08-28] MEDS: LIDOCAINE 1% LOCAL 20 ML VIAL ONE (10:09)
[2024-08-28] MEDS: fentaNYL citrate PF 100 MCG/2 ML VIAL ONE (10:46)
[2024-08-28] MEDS: OPTIRAY 350 ONE (10:47)
[2024-08-28] MEDS: HEPARIN (PORCINE) 1000 UNIT/ML 10 ML (CATH LAB USE ONLY) ONE (10:47)
[2024-08-28] MEDS: MIDAZOLAM HCL 1 MG/ML 2ML VIAL ONE ×2 (10:47→10:49)
[2024-08-28] MEDS: CLOPIDOGREL BISULFATE 300 MG TAB ONE (10:49)
--- NOTE | 2024-08-28 10:55 | Post Anesthesia Assessment ---
Date of Service August 28, 2024 Post Sedation Assessment Vital Signs Temp Pulse Pulse Pulse Resp BP BP 08/28/24 09:34 75 18 08/28/24 08:44 65 18 158/94 H 08/28/24 07:04 63 08/28/24 06:30 65 14 178/101 H 08/28/24 06:00 64 16 183/103 H 08/28/24 05:30 66 18 198/114 H 08/28/24 05:01 71 19 165/128 H 08/28/24 04:57 65 13 165/128 H 08/28/24 04:30 63 13 181/107 H 08/28/24 04:09 98.6 F 62 20 172/92 H 08/28/24 03:30 63 17 172/92 H 08/28/24 02:00 74 19 176/99 H 08/28/24 01:38 67 08/28/24 01:00 65 14 166/89 H 08/28/24 01:00 64 15 166/89 H 08/28/24 00:30 65 13 168/94 H 08/28/24 00:00 74 14 171/100 H 08/27/24 23:30 88 16 164/94 H 08/27/24 22:57 68 17 08/27/24 22:30 70 17 181/103 H 08/27/24 22:18 65 12 08/27/24 22:03 72 16 08/27/24 22:00 158/88 H 08/27/24 21:38 78 08/27/24 21:28 69 20 191/111 H 08/27/24 21:13 78 18 178/96 H 08/27/24 19:13 98.6 F 92 H 18 186/100 H Pulse Ox O2 Del Method 08/28/24 09:34 98 Room Air 08/28/24 08:44 96 Room Air 08/28/24 07:04 08/28/24 06:30 98 08/28/24 06:00 98 08/28/24 05:30 100 08/28/24 05:01 98 08/28/24 04:57 100 08/28/24 04:30 98 08/28/24 04:09 98 Room Air 08/28/24 03:30 98 08/28/24 02:00 100 08/28/24 01:38 08/28/24 01:00 99 08/28/24 01:00 98 08/28/24 00:30 100 08/28/24 00:00 98 08/27/24 23:30 99 08/27/24 22:57 97 Room Air 08/27/24 22:30 99 Room Air 08/27/24 22:18 97 Room Air 08/27/24 22:03 97 Room Air 08/27/24 22:00 08/27/24 21:38 08/27/24 21:28 99 Room Air 08/27/24 21:13 98 Room Air 08/27/24 19:13 97 Room Air Recovery Score Activity: Moves 4 extremities Respiration: Deep Breath/Cough Circulation: +/-20% PreAnes Value Consciousness: Fully Awake Oxygen Saturation: O2 needed for >90% Discharge Sedation Level of Care: Fast Track Phase II Post Sedation Plan On clinical assessment, the patient appears to have tolerated the sedation without complications. Patient is recovering as anticipated. Patient will continue to be monitored by nursing and may be discharged when sedation discharge criteria are met per below protocol. Upon Completions of procedure up to 15 minutes continue every 5 minute vital signs and the P.A.R. score; then discharge to a Phase I or Fast Track to Phase II per the following guidelines: * Discharge Patient to appropriate Phase II area if PAR is 8 or greater or return to pre- procedure baseline. The post - procedure orders will be as directed. * If PAR score is less than 8 or not return to pre-procedure baseline then patient will follow Phase I monitoring till PAR is reached for Phase II. The Phase I may be done in procedure room or may call to secure a Phase I area. * If naloxone or flumazenil are used for reversal, hold in Phase I for continued monitoring from when last reversal dose was given for a minimum of 60 minutes or longer pending the nurse and/or physician discretion of patient condition before discharge to Phase II. Please call the Sedation Physician to re-evaluate and complete post-note for discharge to Phase II area. Do NOT discharge from procedure sedation or Phase 1 until post- sedation evaluat ion note is complete by procedure /sedation MD Sedation Discharge Instructions to be given to the patient at discharge to home.
--- NOTE | 2024-08-28 10:59 | Cardiac Catheterization ---
[facility] Data: Psychotherapist Cardiac Status Clinical evaluation leading to the procedure CAD Presenation: Non STEMI Anginal Classification: CCS IV Diagnostic Physicians Name: Jose Rodarte MD Closure Device Recommendations: PCI without planned CABG Cardiac Cath Procedure Full Procedure Date August 28, 2024 Pre-Procedure Diagnosis Pre-Procedure Diagnosis: Non STEMI AUC Score AUC Score: 8 Post-Procedure Diagnosis Post-Procedure Diagnosis: Severe CAD and Successful PCI Procedure(s) Performed Procedure(s) Performed: Coronary Angiography, Left Heart Cath, Drug Eluting Stent and IVUS Mineral Resources Inspector Jose Rodarte MD Test Data Developer(s) [place] Estimated Blood Loss Estimated Blood Loss: 15 Medication(s) Medication(s): Clopidogrel, Fentanyl, Heparin, Lidocaine 1%, Nicardipine, Nitroglycerin and Versed Summary of Findings Indication: NSTEMI Access: 6 Fr right radial artery Catheters: [place], EBU 3.5 guide Findings: LM -normal caliber, significant disease LAD -medium caliber, 20% proximal, 95% mid segment disease, distal vessel with luminal irregularities and wraps around apex. 50% proximal small to medium D2. Small D3 with 80% proximal stenosis Circumflex -large caliber 40-50% mid to distal disease extending across takeoff of OM 2. Distal AV groove circumflex without significant disease. Proximal large OM2 with 40% stenosis. RCA -dominant, medium caliber, anterior takeoff. Diffuse 30-40% proximal to mid disease. Latemid RCA with diffuse 30% disease. Distal RCA and RPDA without significant disease LVEDP -10 -- PCI -- Antithrombotic therapy: Heparin, clopidogrel Procedure: Left main cannulated with EBU 3.5 guide Pre-procedure flow AWAIS 2-3 [place] Blue wire passed across lesion into distal vessel Paz IVUS placed to mid LAD. Pullback revealed severe, minimally calcified disease extending back to proximal segment across take-off of D2. Mid LAD lesion predilated with 2.5 compliant balloon Dilated lesion stented with 2.75 x 33 mm Xience RON Stent post-dilated with 3.5 noncompliant balloon Repeat IVUS showed well-expanded, well-apposed stent with no apparent edge complications IC vasodilators administered for spasm Post procedure AWAIS 3 flow, stent well expanded with minimal residual stenosis and no apparent cardiac complications. Arterial Closure: TR Band Summary: 1. Multivessel coronary artery disease - Acute 95% mid LAD stenosis. 80% small D3 - 40-50% mid circumflex. 40% proximal OM2. - 30-40% diffuse proximal to mid RCA. 2. Normal intracardiac filling pressure 3. Successful PCI of proximal to mid LAD with single drug-eluting stent (2.75 x 33mm Xience; post-dilated with 3.5 NC). 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 Hemodynamics Rest Ao:: 123/70/91 Final Ao: 112/58/80 LV: 121/10 Recommendations Recommendations: PCI without planned CABG Specimens Specimens: None Radiation Exposure (mGy) 1579 Contrast (mls) 110 Anesthesia Moderate 9946-3152 Procedural Complication(s) None Disposition PCU I attest to the content of the Intraoperative Record and any orders documented therein. Any exceptions are noted below. [facility] Card Cath Procedure Codes Cardiac Catheterization Procedure 1: Cardiovascular Cath Procedures: 28723 Coronaries and LHC (+/-LV) Therapeutic Services & Ancillary Procedure 1: Cardiovascular Tx and Anc Procedures: 50532 IV Ultrasound (Coronary or Graft) Moderate Sedation Procedure 1: Sedation/Anesthesia: 65178 Mod Sedation by the same physician;Init15 Min Child Age 5 & Up Procedure 2: Sedation/Anesthesia: 62377 Mod Sedation by the same physician; Ea [id number] Minutes Stenting Procedure 1: Cardiovascular Stent Procedures: 29787 Perc transcatheter placement of intracoronary stent(s), with ang PG Care Time/CCT Total # of Minutes Spent Total Time Spent with Patient: Total time spent is greater than 50% in coordination of care (as documented) at patient's floor/unit and/or counseling patient:
--- NOTE | 2024-08-28 12:44 | Electrocardiogram Report ---
Test Reason : Blood Pressure : */* mmHG Vent. Rate : 89 BPM Atrial Rate : 89 BPM P-R Int : 190 ms QRS Dur : 80 ms QT Int : 322 ms P-R-T Axes : 76 61 69 degrees QTcB Int : 391 ms Normal sinus rhythm Nonspecific T wave abnormality Abnormal ECG When compared with ECG of 29-Apr-2017 12:09, Nonspecific T wave abnormality no longer evident in Inferior leads Nonspecific T wave abnormality now evident in Anterior leads Confirmed by Wiley Heard ([id number]) on 08/28/2024 12:43:41 PM Referred By: [facility] Confirmed By: Wiley Heard
--- NOTE | 2024-08-28 12:59 | Electrocardiogram Report ---
Test Reason : Blood Pressure : */* mmHG Vent. Rate : 62 BPM Atrial Rate : 62 BPM P-R Int : 222 ms QRS Dur : 84 ms QT Int : 392 ms P-R-T Axes : 57 59 47 degrees QTcB Int : 397 ms Sinus rhythm with 1st degree A-V block T wave abnormality, consider anterior ischemia Abnormal ECG When compared with ECG of 27-Aug-2024 19:21, (unconfirmed) ND interval has increased T wave inversion now evident in Anterior leads Confirmed by Wiley Heard ([id number]) on 08/28/2024 12:58:26 PM Referred By: [facility] Confirmed By: Wiley Heard
--- NOTE | 2024-08-28 14:24 | Pharmacy Report ---
Pharmacy Glycemic Short Note 2 - Date of Service August 28, 2024 - Glycemic Short BSG Results (Last 24 hours): 08/27/24 08/28/24 08/28/24 19:22 04:49 05:50 Glucose 370 H* 195 H POC Glucose 189 H 08/28/24 09:16 Glucose POC Glucose 131 H OUTPATIENT ANTIDIABETIC REGIMEN: * NPH 20 units SC BIDM * Metformin 1000 mg PO BIDM HbA1c: 9.9% (08/28/24) ASSESSMENT: * AK is a 63 year old male w/ NSTEMI now s/p PCI * Patient was hyperglycemic on presentation, but corrected to 131 mg/dL this morning with minimal insulin * Patient refused AM basal while NPO - will order basal postoperatively PLAN FOR INPATIENT GLYCEMIC CONTROL: * Hold outpatient oral diabetes medications * Basal insulin * Lantus 15 units SQ x 1 * Bolus insulin * NovoLog per scale ACHS or Q6hrs while NPO * Goal Range: Low 110 mg/dL - High 140 mg/dL * Correction Factor: 25 mg/dL/unit * Nutritional / Prandial insulin per carb ratio of 1 unit per 9 grams CHO consumed
[2024-08-28] MEDS ORDERED: LANTUS PER UNIT CHARGE SQ ONE (14:30)
[2024-08-28] MEDS: INSULIN ASPART PER UNIT CHARGE ONE (16:09)
[2024-08-28] MEDS: LANTUS PER UNIT CHARGE SQ ONE (16:42)
[2024-08-28] MEDS: carvediloL 12.5 MG TAB PO SCH (17:08)
--- NOTE | 2024-08-28 17:29 | Communication Note ---
Patient was admitted overnight for an NSTEMI, cardiology consulted, recommended cath. Cath revealed LAD lesion, mid LAD drug eluting stent placed. Patient transferred to ICU for post cath monitoring. Date of Service: August 28, 2024
[2024-08-29 04:22] LABS: Hematocrit (blood only) 41.2 % (42.0-52.0); Hemoglobin 14.2 g/dl (14.0-18.0); Mean Corpuscular Hemoglobin 32.5 pg (25.0-34.0); Mean Corpuscular Hgb Conc 34.5 g/dL (32.0-36.0); Mean Corpuscular Volume 94.3 fL (80.0-100.0); Platelet Count 157 K/uL (130-400); RDW Coefficient of Variation 11.9 % (11.5-14.5); RDW Standard Deviation 41.4 fL (36.4-46.3); Red Blood Count 4.37 M/uL (4.70-6.10); White Blood Count 5.18 K/ul (4.8-10.8)
[2024-08-29 04:36] LABS: Albumin Globulin Ratio 1.7 (0.9-2); Albumin Level 3.5 gm/dl (3.4-5.0); BUN Creatinine Ratio 15.7 (10-20); Bilirubin,Total 0.6 mg/dl (0.2-1.0); Calcium 8.8 mg/dl (8.6-10.3); Chol HDL Ratio 3.4 (0-5); Creatinine Clr Calc Pharmacy 77.1 ml/min; Globulin 2.1 gm/dl (2.5-4.0); Magnesium 1.9 mg/dl (1.7-2.4); Total Protein 5.6 gm/dl (6.0-8.3)
[2024-08-29 08:06] VITALS: RESP 18
[2024-08-29] MEDS: MAGNESIUM SULFATE / D5W 1 GM/100 ML BAG IV ONE (08:12)
[2024-08-29] MEDS: CLOPIDOGREL BISULFATE 75 MG TAB PO SCH (08:13)
--- NOTE | 2024-08-29 10:34 | Cardiology Progress Note ---
Date of Service August 29, 2024 Assessment & Plan (1) NSTEMI (non-ST elevated myocardial infarction): Plan: Summary of cardiac cath performed 08/28/24: 1. Multivessel coronary artery disease - Acute 95% mid LAD stenosis. 80% small D3 - 40-50% mid circumflex. 40% proximal OM2. - 30-40% diffuse proximal to mid RCA. 2. Normal intracardiac filling pressure 3. Successful PCI of proximal to mid LAD with single drug-eluting stent (2.75 x 33mm Xience; post-dilated with 3.5 NC). * Aspirin 81 mg daily (lifelong therapy * Clopidogrel 75 mg daily x 1 year * Coreg 12.5 mg BID * Lisinopril 40 mg * increase atorvastatin to 80 mg daily (2) Hypertension: Plan: Continue lisinopril 40 mg daily Atenolol stopped in favor of Coreg 12.5 mg BID. As outpatient , [facility] and titrate Coreg or add amlodipine for goal systolic BP < 130 mm Hg. (3) Dyslipidemia: Plan: Increase atorvastatin to 80 mg daily. Patient eager for discharge. Stable from cardiology perspective for discharge back to [facility]. Admission and Anticipated Discharge Date Admission Date: August 28, 2024 Subjective Patient seen in cardiology follow up. Denies chest pain or shortness of breath. Telemetry reveals sinus rhythm without arrhythmia. Physical Exam Physical Exam: General: no acute distress and stated age Eyes: conjunctiva are pink and non-injected, sclera clear Neck: normal jugular venous pulse, no hepatojugular reflux Chest: normal shape and normal respiratory effort Lungs: clear to auscultation and percussion Cardiac Exam: - regular heart sounds, no murmurs, rubs, or gallops, no jugular venous distention Abdomen: abdomen soft, non-tender, no abnormal masses and no hepatosplenomegaly Musculoskeletal: no gait disturbance, no weakness Extremities: no edema and no cyanosis -Right radial cath site, clean, dry and intact, no hematoma Neuro:awake, conversant, follows commands, no focal motor deficits Psych: appropriate affect and insight. Results & Data Vital Signs (Past 12 Hours) Vital Signs Temp Pulse Pulse Resp BP Pulse Ox Pulse Ox 08/29/24 08:05 36.6 C 67 18 163/89 H 97 08/29/24 07:30 61 08/29/24 04:00 36.7 C 63 16 162/90 H 97 02/13/25 04:00 97 08/29/24 00:00 36.7 C 61 14 153/83 H 95 O2 Del Method O2 Del Method 08/29/24 08:05 Room Air 08/29/24 07:30 08/29/24 04:00 Room Air 08/29/24 04:00 Room Air 08/29/24 00:00 Room Air Laboratory Results Cardiac Enzymes 08/28/24 08/29/24 Range/Units 17:02 03:33 AST 14 (13-39) U/L Troponin I High Sens 341.9 H* (0-20) pg/ml Lipids 08/29/24 Range/Units 03:33 Triglycerides 52 (0-150) mg/dl Cholesterol 111 (0-200) mg/dl HDL Cholesterol 33 mg/dl Cholesterol/HDL Ratio 3.4 (0-5) CBC 08/29/24 Range/Units 03:36 WBC 5.18 (4.8-10.8) K/ul RBC 4.37 L (4.70-6.10) M/uL Hgb 14.2 (14.0-18.0) g/dl Hct 41.2 L (42.0-52.0) % Plt Count 157 (130-400) K/uL Comprehensive Metabolic Panel 08/29/24 Range/Units 03:33 Sodium 138 (136-145) mmol/L Potassium 4.0 (3.5-5.1) mmol/L Chloride 105 (98-107) mmol/L Carbon Dioxide 28 (21-32) mmol/L BUN 17 (6-23) mg/dl Creatinine 1.08 (0.6-1.4) mg/dl Glucose 118 H (70-99(Fasting)) mg/dl Calcium 8.8 (8.6-10.3) mg/dl AST 14 (13-39) U/L ALT 13 (7-52) U/L Alkaline Phosphatase 73 (34-104) U/L Total Protein 5.6 L (6.0-8.3) gm/dl Albumin 3.5 (3.4-5.0) gm/dl Intake and Output 08/28/24 08/29/24 08/29/24 22:59 06:59 14:59 Intake Total 772.333 / 1012.333 240 / 1012.333 100 / 100 Output Total 1226 525 / 1226 Balance 771.333 / -213.667 -285 / -213.667 100 / 100 Intake: IV 272.333 / 272.333 100 / 100 Heparin 59823 Unit/500 ml D5w 272.333 / 272.333 25,000 units In 500 ml @ 1,000 UNITS/HR 20 mls/hr IV .Q24H DOUG Rx#:[id number] Magnesium Sulfate / D5w 1 gm In 100 / 100 100 ml @ 50 mls/hr IV ONE ONE Rx#:[id number] Oral 500 / 740 240 / 740 Output: Urine 525 / 1225 # Bowel Movements / 0 Other: # Unmeasured Voids 1 Weight 88.7 kg Weight Measurement Method Built in [facility] Diagnostic Findings Nasal swab screen positive for MRSA EKG performed 08/29/24 and reviewed independently: Sr at 64 bpm Anterolateral T wave inversions. Stable findings compared to prior.
[2024-08-29 11:42] VITALS: BP 150/91; PULSE 64; TEMP 98.2; O2SAT 95
[2024-08-29] MEDS: ATORVASTATIN 40 MG TAB PO ONE (11:59)
[2024-08-29] MEDS: LANTUS PER UNIT CHARGE SC SCH (12:00)
--- NOTE | 2024-08-29 14:50 | Electrocardiogram Report ---
Test Reason : Blood Pressure : */* mmHG Vent. Rate : 64 BPM Atrial Rate : 64 BPM P-R Int : 220 ms QRS Dur : 82 ms QT Int : 390 ms P-R-T Axes : 68 68 68 degrees QTcB Int : 402 ms Sinus rhythm with 1st degree A-V block T wave abnormality, consider anterior ischemia Abnormal ECG When compared with ECG of 28-Aug-2024 08:39, No significant change was found Confirmed by Wiley Heard ([id number]) on 08/29/2024 2:49:39 PM Referred By: [facility] Confirmed By: Wiley Heard
--- NOTE | 2024-08-29 15:18 | Electrocardiogram Report ---
Test Reason : Blood Pressure : */* mmHG Vent. Rate : 64 BPM Atrial Rate : 64 BPM P-R Int : 214 ms QRS Dur : 88 ms QT Int : 398 ms P-R-T Axes : 61 75 67 degrees QTcB Int : 410 ms Sinus rhythm with 1st degree A-V block Septal infarct , age undetermined Marked T wave abnormality consider anterolateral ischemia Abnormal ECG When compared with ECG of 28-Aug-2024 15:52, (unconfirmed) Inverted T waves have replaced nonspecific T wave abnormality in Lateral leads Confirmed by Wiley Heard ([id number]) on 08/29/2024 3:18:08 PM Referred By: [facility] Confirmed By: Wiley Heard
--- NOTE | 2024-08-29 18:09 | Discharge Summary ---
Discharge Summary Date of Service August 29, 2024 Principal Dx & Hospital Course #1 = Principal Diagnosis (1) Chest pain: 63-year-old male with past medical history significant for hypertension, hyperlipidemia, diabetes, GERD is coming from [facility] with chest pain. Patient says couple days ago had chest pain. Again yesterday whole day had chest pain on left-sided chest burning type pain which was severe in nature, no radiation but associated with some shortness of breath, sweating and dizziness and nausea. Patient states pain started when he was walking. The pain lasted until 6 PM. Currently pain resolved. Patient thinks the pain may come back if he walks again. Denies any fevers. No cough. No runny nose or sore throat. No earache. No headache. Vision is okay. Appetite has been okay. No abdominal pain. Normal bowel and bladder movements. Denies blood in stools or black stools. Currently resting comfortably and hemodynamically stable. Chest pain -s/p stent placement -meds optimized before discharge -appreciate cardiology consult Hypertension On atenolol and lisinopril we will monitor Hyperlipidemia On statin Diabetes Hold home medications Placed on Lantus 5 units daily and sliding scale for now glycemic pharmacy consult. Monitor closely Fall HbA1c levels GERD Protonix DVT prophylaxis IV heparin Disposition Telemetry Full code Notes For Next Care Provider 63-year-old male with past medical history significant for hypertension, hyperlipidemia, diabetes, GERD is coming from senior living with chest pain. In the ED noted to have rising troponins, admitted to medicine for further workup. Cardiology consulted, stent placed due to severe CAD. Patient monitored overnight in ICU. Patient asymptomatic on evaluation and per cardiology patient is okay [facility]. Medications were optimized and follow-up discussed. Medication Changes From Visit -aspirin, statin, coreg, plavix Admission HPI Per Admitting Provider 63-year-old male with past medical history significant for hypertension, hyperlipidemia, diabetes, GERD is coming from senior living with chest pain. Patient says couple days ago had chest pain. Again yesterday whole day had chest pain on left-sided chest burning type pain which was severe in nature, no radiation but associated with some shortness of breath, sweating and dizziness and nausea. Patient states pain started when he was walking. The pain lasted until 6 PM. Currently pain resolved. Patient thinks the pain may come back if he walks again. Denies any fevers. No cough. No runny nose or sore throat. No earache. No headache. Vision is okay. Appetite has been okay. No abdominal pain. Normal bowel and bladder movements. Denies blood in stools or black stools. Currently resting comfortably and hemodynamically stable. Past medical history. As mentioned above Past surgical history. Right foot surgery per patient Social history. Smokes e-cigarettes. Denies alcohol use or drug use Family history. Father had diabetes. Discharge Exam Gen: A&O 3 NAD HEENT: NCAT, EOMI, not icteric. External ears normal. No rhinorrhea. Moist mucous membranes. Neck: Supple, full range of motion, no observable masses, No meningeal sign. Lungs: No Respiratory distress. CV: RRR, no edema. Abdomen: Soft, nondistended, No rebound tenderness. MSK: No joint swelling, no redness. Skin: No rashes, petechiae, lesions. Normal color per patient. Neuro: Normal Gait, Grossly intact. Psych: Appropriate for situation. Updated Medication List Medication Instructions Recorded Confirmed Type cyanocobalamin (vitamin B-12) 500 500 mcg PO DAILY 08/27/24 08/27/24 History mcg tablet insulin NPH isoph U-100 human 100 20 unit subcut DAILY 08/27/24 08/27/24 History unit/mL subcutaneous suspension (Novolin N NPH U-100 Insulin isophane) insulin NPH isoph U-100 human 100 20 unit subcut QPM 08/27/24 08/27/24 History unit/mL subcutaneous suspension (Novolin N NPH U-100 Insulin isophane) lisinopril 40 mg tablet 40 mg PO DAILY 08/27/24 08/28/24 History metformin 1,000 mg tablet 1,000 mg PO BID 08/27/24 08/28/24 History pantoprazole 20 mg tablet,delayed 20 mg PO DAILY 08/27/24 08/28/24 History release aspirin 81 mg tablet,delayed 81 mg PO DAILY #30 tabs 08/29/24 Rx release atorvastatin 40 mg tablet 80 mg (2 x 40 mg) PO DAILY #60 tabs 08/29/24 Rx carvedilol 12.5 mg tablet 12.5 mg PO BIDM #60 tabs 08/29/24 Rx clopidogrel 75 mg tablet 75 mg PO QAM #30 tabs 08/29/24 Rx Hospital Stay Data Consultations 08/27/24 22:33 ED Decision to Admit Stat 08/28/24 08:00 Consult Cardiology Routine Procedures Performed Operation Date: 08/28/24 09:30 Actual Procedures p Cineradiography w/Routine Exam - Jose Rodarte MD s Cath, Left with Cors and Vent - Jose Rodarte MD s IVUS Coronary Single Vessel - Jose Rodarte MD s Drug Eluting Stent SGl Vessel - Jose Rodarte MD Diagnostic Imagining Performed 08/28/24 09:48 CL Cath Imgs for PACS use only Stat 08/28/24 11:12 CL IVUS Coronary Single Vessel Routine Discharge Instructions Given to Patient (Per Discharging Provider) 1. Please take medications as prescribed. Total Time Total Time Spent Total Time Spent (In Minutes): I spent a total of 35 minutes in direct patient care, including [id number] time with the patient and/or family, reviewing medical records, ordering and reviewing diagnostic tests, and coordinating care with other healthcare providers. This time includes: history taking, physical examination, medical decision making, counseling, ECG interpretation, imaging interpretation, lab interpretation, orders, and education, excluding time spent in the performance of separately billed services.
[2024-08-30] MEDS ORDERED: ATORVASTATIN 40 MG TAB PO SCH (09:00)
== END 2024-08-29 14:03 | DRG 322 ==
LOC: ED 19:05 → EDINP 08-28 02:06 → 1E 08-28 15:59